=== PATIENT | male | born 1960 | race Caucasian/White ===

== ENCOUNTER 2017-09-22 10:07 | Inpatient (IN) | payer BC ==
[2017-09-22 11:20] LABS: Absolute Lymphocytes (CBC) 0.9 K/uL (0.7-4.9); Absolute Monocytes 0.6 K/uL (0.1-1.3); Basophils % 0.3 % (0-1.3); Eosinophils % 0.8 % (0-4.4); Hematocrit 28.3 % (39.6-49.0); Lymphocytes % 9.4 % (15.3-44.8); MCH 28.8 pg (27.0-35.0); MCV 88.1 fL (80-100); MPV 7.4 fL (7.6-11.3); Monocytes % 6.7 % (3.3-12.3); RBC Red Blood Cell Count 3.21 M/uL (4.33-5.43)
[2017-09-22 11:30] LABS: Protime INR 1.36
[2017-09-22 12:07] LABS: Albumin 3.5 g/dL (3.2-5.5); Bilirubin Direct 0.2 mg/dL (0-0.2); Bilirubin Total 0.6 mg/dL (0.3-1.2); Potassium 3.7 mEq/L (3.6-5.0); Protein, Total 6.5 g/dL (6.0-8.3)
[2017-09-22 12:41] LABS: Magnesium 0.6 mg/dL (1.8-2.5)
--- NOTE | 2017-09-22 12:43 | RAD REPORT ---
EXAM DESCRIPTION: VAS - Extrem Venous W Compress Brendon - 09/22/2017 11:33 am CLINICAL HISTORY: Bilateral leg edema and swelling. COMPARISON: None. TECHNIQUE: Real-time sonographic interrogation of the left and right lower extremity deep venous sys tems was performed. FINDINGS: Normal compressibility, flow augmentation, phasic flow and spontaneous flow is identified in both the left and right lower extremity deep venous systems. IMPRESSION: No sonographic evidence of left or right lower extremity deep venous thrombosis.
--- NOTE | 2017-09-22 12:46 | EDPHYS ---
Physician Documentation [facility] Name: Dilip Delgado Age: 57 yrs Sex: Male : 1960 Arrival Date: 09/22/2017 Time: 10:10 Bed 19 Private MD: Ariel Teran T ED Physician Shabbir Weiss HPI: 09/22 11:08 This 57 yrs old Male presents to ER via Wheelchair with complaints of rn Shortness Of Breath. 11:08 The patient has shortness of breath at rest, with light activity. Onset: The rn symptoms/episode began/occurred 3 week(s) ago. Duration: The symptoms are intermittent. Associated signs and symptoms: Pertinent positives: non-productive cough, Pertinent negatives: chest pain, fever, hemoptysis, loss of consciousness. Severity of symptoms: At their worst the symptoms were moderate in the emergency department the symptoms are unchanged. The patient has not experienced similar symptoms in the past. The patient has been recently seen by a physician:. Reports non-productive cough for 2-3 weeks, recently seen and put on zithromax, almost complete and not better, feels worse, no hemoptysis, has had multiple dopplers of LLE for swelling and to rule out DVT. No fever/chills. Dyspnea with exertion. . Historical: - Allergies: 10:23 No Known Allergies; hb - Home Meds: 10:23 Nexium Oral [Active]; allopurinol 100 mg Oral tab [Active]; hb - PMHx: 10:23 GERD; Gout; hb - PSHx: 10:23 Achilles tendon repair - RIGHT; hb - Immunization history:: Adult Immunizations up to date. - Social history:: Smoking status: Patient uses tobacco products, smokes one pack cigarettes per day. - Family history:: not pertinent. - Hospitalizations: : No recent hospitalization is reported. ROS: 11:08 Constitutional: Negative for fever, chills, and weight loss, Eyes: Negative for injury, rn pain, redness, and discharge, Neck: Negative for injury, pain, and swelling, Cardiovascular: Negative for chest pain, palpitations Respiratory: Negative for wheezing, and pleuritic chest pain, Abdomen/GI: Negative for abdominal pain, nausea, vomiting, diarrhea, and constipation, Back: Negative for injury and pain, MS/Extremity: Negative for injury and deformity, Skin: Negative for injury, rash, and discoloration, Neuro: Negative for headache, numbness, tingling, and seizure. Exam: 11:08 Constitutional: This is a well developed, well nourished patient who is awake, alert, rn mild tachypnea Head/Face: Normocephalic, atraumatic. Eyes: Pupils equal round and reactive to light, extra-ocular motions intact. Lids and lashes normal. Conjunctiva and sclera are non-icteric and not injected. Cornea within normal limits. Periorbital areas with no swelling, redness, or edema. Neck: Trachea midline, no thyromegaly or masses palpated, and no cervical lymphadenopathy. Supple, full range of motion without nuchal rigidity, or vertebral point tenderness. No Meningismus. Cardiovascular: Regular rate and rhythm with a normal S1 and S2. No gallops, murmurs, or rubs. Normal PMI, no JVD. No pulse deficits. Respiratory: + mild tachypnea, diminished breath sounds at bases, faint upper vigil wheezing Abdomen/GI: Soft, non-tender, with normal bowel sounds. No distension or tympany. No guarding or rebound. No evidence of tenderness throughout. MS/ Extremity: Pulses equal, no cyanosis. Neurovascular intact. Full, normal range of motion. 3+ pitting edema bilateral lower ext with LLE > circ than RLE Neuro: Awake and alert, GCS 15, oriented to person, place, time, and situation. Cranial nerves II-XII grossly intact. Motor strength 5/5 in all extremities. Sensory grossly intact. Vital Signs: 10:17 BP 157 / 95; Pulse 102; Resp 20; Temp 98.5; Pulse Ox 96% on R/A; hb 10:30 Pulse Ox 89% on R/A; tw2 11:08 BP 158 / 99; Pulse 91; Resp 28; Pulse Ox 97% on 2 lpm NC; tw2 12:09 BP 180 / 89; Pulse 90; Resp 22; Pulse Ox 94% on 2 lpm NC; tw2 13:10 BP 181 / 110; Pulse 94; Resp 19; Pulse Ox 95% on 2 lpm NC; tw2 13:51 BP 143 / 99; Pulse 83; Resp 20; Pulse Ox 95% on 2 lpm NC; tw2 15:29 BP 162 / 95; Pulse 85; Resp 17; Pulse Ox 96% on 2 lpm NC; tw2 10:30 pt winded while getting into gown, placed on o2 via nc at 2L will continue to monitor tw2 Procedures: 12:48 Ultrasound: Type: Bedside ECHo shows large and hypertrophic LV, no effusion, plethoric rn IVC. . MDM: 10:36 Patient medically screened. rn 12:43 Differential diagnosis: CHF exacerbation, Myocardial Infarction Pneumothorax pulmonary rn edema. Data reviewed: vital signs, nurses notes, lab test result(s), EKG, radiologic studies, plain films, and as a result, I will admit patient. Counseling: I had a detailed discussion with the patient and/or guardian regarding: the historical points, exam findings, and any diagnostic results supporting the discharge/admit diagnosis, lab results, radiology results, the need for further work-up and treatment in the hospital. Response to treatment: the patient's symptoms have mildly improved after treatment, and as a result, I will admit patient. Admission orders: after a detailed discussion of the patient's condition and case, the admit orders are written by me. 09/22 10:47 Order name: Hepatic Function; Complete Time: 12:42 09/22 10:47 Order name: Blood Culture Adult (2) rn 09/22 10:47 Order name: BMP; Complete Time: 12:42 09/22 10:47 Order name: BNP; Complete Time: 11:56 09/22 10:47 Order name: CBC with Diff; Complete Time: 11:56 09/22 10:47 Order name: Magnesium; Complete Time: 12:42 09/22 10:47 Order name: XRAY Chest Pa And Lat (2 Views); Complete Time: 13:03 09/22 10:47 Order name: PT-INR; Complete Time: 11:56 09/22 10:47 Order name: Ptt, Activated; Complete Time: 11:56 09/22 10:47 Order name: Troponin (emerg Dept Use Only); Complete Time: 11:56 09/22 10:47 Order name: Extrem Venous W Compression Brendon US; Complete Time: 12:47 09/22 10:47 Order name: Procalcitonin; Complete Time: 12:40 09/22 10:47 Order name: EKG; Complete Time: 10:48 09/22 10:47 Order name: Cardiac monitoring; Complete Time: 11:07 rn 09/22 10:47 Order name: EKG - Nurse/Tech; Complete Time: 12:39 rn 09/22 10:47 Order name: IV Saline Lock; Complete Time: 11:07 rn 09/22 10:47 Order name: Labs collected and sent; Complete Time: 11:07 rn 09/22 10:47 Order name: O2 Per Protocol; Complete Time: 10:50 rn 09/22 10:47 Order name: O2 Sat Monitoring; Complete Time: 10:50 rn Administered Medications: 12:50 Drug: Magnesium Sulfate 2 grams Route: IVPB; Infused Over: 2 hrs; Site: right tw2 antecubital; 14:50 Follow up: Response: No adverse reaction; IV Status: Completed infusion tw2 13:05 Drug: Calcium Gluconate 1 grams Route: IVPB; Infused Over: 60 mins; Site: right tw2 antecubital; 14:10 Follow up: Response: No adverse reaction; IV Status: Completed infusion tw2 13:48 Drug: Lopressor 5 mg Route: IVP; Site: right antecubital; tw2 15:28 Follow up: Response: No adverse reaction tw2 13:50 Drug: fentaNYL (PF) 50 mcg Route: IVP; Site: right antecubital; tw2 14:15 Follow up: Response: No adverse reaction; Pain is decreased tw2 13:52 Drug: Albuterol 2.5 mg Route: Inhalation; tw2 13:52 Drug: Lasix 40 mg Route: IVP; Site: right antecubital; tw2 15:29 Follow up: Response: No adverse reaction tw2 Disposition: 09/22/17 12:45 Hospitalization ordered by Bright Joyce for Inpatient Admission. Preliminary diagnosis are Dyspnea, unspecified, Edema, unspecified, Unspecified combined systolic (congestive) and diastolic (congestive) heart failure, Hypomagnesemia, Hypocalcemia. - Bed requested for Telemetry/MedSurg (Inpatient). - Status is Inpatient Admission. tw2 - Condition is Stable. - Problem is an ongoing problem. - Symptoms have improved. UTI on Admission? No Signatures: Dispatcher [employer] EDMS Kim Fraizer Roman, MD MD rn Roszak, Josh, PA PA [id number] Pavithra Cisse RN RN hb Wise, Tara, RN RN tw2 Corrections: (The following items were deleted from the chart) 15:16 12:45 Hospitalization Ordered by Bright Joyce DO for Inpatient Admission. Preliminary bd diagnosis is Dyspnea, unspecified; Edema, unspecified; Unspecified combined systolic (congestive) and diastolic (congestive) heart failure; Hypomagnesemia; Hypocalcemia. Bed requested for Telemetry/MedSurg (Inpatient). Status is Inpatient Admission. Condition is Stable. Problem is an ongoing problem. Symptoms have improved. UTI on Admission? No. rn 16:17 15:16 09/22/2017 12:45 Hospitalization Ordered by Bright Joyce DO for Inpatient tw2 Admission. Preliminary diagnosis is Dyspnea, unspecified; Edema, unspecified; Unspecified combined systolic (congestive) and diastolic (congestive) heart failure; Hypomagnesemia; Hypocalcemia. Bed requested for Telemetry/MedSurg (Inpatient). Status is Inpatient Admission. Condition is Stable. Problem is an ongoing problem. Symptoms have improved. UTI on Admission? No. bd
--- NOTE | 2017-09-22 12:46 | ER ---
Nurse's Notes [facility] Name: Dilip Delgado Age: 57 yrs Sex: Male : 1960 Arrival Date: 09/22/2017 Time: 10:10 Bed 19 Private MD: Ariel Teran T Diagnosis: Dyspnea, unspecified;Edema, unspecified;Unspecified combined systolic (congestive) and diastolic (congestive) heart failure;Hypomagnesemia;Hypocalcemia Presentation: 09/22 10:19 Presenting complaint: Patient states: SOB and productive cough with yellow sputum x 2 hb weeks, worse over last 2 days. On Zithromax Day 4 for bronchitis. Transition of care: patient was not received from another setting of care. Onset of symptoms is unknown. Initial Sepsis Screen: Does the patient meet any 2 criteria? No. Patient's initial sepsis screen is negative. Does the patient have a suspected source of infection? No. Patient's initial sepsis screen is negative. Care prior to arrival: None. 10:19 Method Of Arrival: Wheelchair hb 10:19 Acuity: CRISTIANA 3 hb Triage Assessment: 10:24 Respiratory: Reports shortness of breath at rest cough that is productive, Onset: The tw2 symptoms/episode began/occurred 2 days worse now, the patient has mild shortness of breath. Historical: - Allergies: 10:23 No Known Allergies; hb - Home Meds: 10:23 Nexium Oral [Active]; allopurinol 100 mg Oral tab [Active]; hb - PMHx: 10:23 GERD; Gout; hb - PSHx: 10:23 Achilles tendon repair - RIGHT; hb - Immunization history:: Adult Immunizations up to date. - Social history:: Smoking status: Patient uses tobacco products, smokes one pack cigarettes per day. - Family history:: not pertinent. - Hospitalizations: : No recent hospitalization is reported. Screenin:23 Abuse screen: Denies threats or abuse. Nutritional screening: No deficits noted. tw2 Tuberculosis screening: No symptoms or risk factors identified. Fall Risk None identified. Assessment: 10:31 General: Appears in no apparent distress. well groomed, Behavior is calm, cooperative, tw2 appropriate for age. Pain: Denies pain. Neuro: Level of Consciousness is awake, alert, obeys commands, Oriented to person, place, time, situation. Cardiovascular: Denies chest pain, Heart tones S1 S2 Capillary refill < 3 seconds Edema is 2+ to left midcalf, left ankle, left foot, right midcalf, right ankle and right foot Rhythm is regular. Respiratory: Reports shortness of breath at rest on exertion cough that is productive, Airway is patent Respiratory effort is even, unlabored, Respiratory pattern is regular, symmetrical, Breath sounds are clear bilaterally. GI: No signs and/or symptoms were reported involving the gastrointestinal system. Abdomen is round Bowel sounds present X 4 quads. : No signs and/or symptoms were reported regarding the genitourinary system. EENT: No signs and/or symptoms were reported regarding the EENT system. Derm: No signs and/or symptoms reported regarding the dermatologic system. Musculoskeletal: Range of motion: intact in all extremities. 11:09 Reassessment: Patient appears in no apparent distress at this time. No changes from tw2 previously documented assessment. Patient and/or family updated on plan of care and expected duration. Pain level reassessed. Patient is alert, oriented x 3, equal unlabored respirations, skin warm/dry/pink. 12:08 Reassessment: Patient appears in no apparent distress at this time. No changes from tw2 previously documented assessment. Patient and/or family updated on plan of care and expected duration. Pain level reassessed. Patient is alert, oriented x 3, equal unlabored respirations, skin warm/dry/pink. Vital Signs: 10:17 BP 157 / 95; Pulse 102; Resp 20; Temp 98.5; Pulse Ox 96% on R/A; hb 10:30 Pulse Ox 89% on R/A; tw2 11:08 BP 158 / 99; Pulse 91; Resp 28; Pulse Ox 97% on 2 lpm NC; tw2 12:09 BP 180 / 89; Pulse 90; Resp 22; Pulse Ox 94% on 2 lpm NC; tw2 13:10 BP 181 / 110; Pulse 94; Resp 19; Pulse Ox 95% on 2 lpm NC; tw2 13:51 BP 143 / 99; Pulse 83; Resp 20; Pulse Ox 95% on 2 lpm NC; tw2 15:29 BP 162 / 95; Pulse 85; Resp 17; Pulse Ox 96% on 2 lpm NC; tw2 10:30 pt winded while getting into gown, placed on o2 via nc at 2L will continue to monitor tw2 ED Course: 10:10 Patient arrived in ED. mr 10:10 Ariel Teran MD is Private Physician. mr 10:21 Triage completed. hb 10:23 Galina Benjamin RN is Primary Nurse. tw2 10:23 Arm band placed on left wrist. hb 10:24 Bed in low position. Call light in reach. laboratory monitor on. Pulse ox on. NIBP on. tw2 10:36 Shabbir Weiss MD is Attending Physician. rn 10:50 Inserted saline lock: 20 gauge in right antecubital area, using aseptic technique. tw2 Blood collected. 11:34 Extrem Venous W Compression Brendon US In Process Unspecified. EDMS 11:52 X-ray completed. Portable x-ray completed in exam room. Patient tolerated procedure jb2 well. 11:52 XRAY Chest Pa And Lat (2 Views) In Process Unspecified. EDMS 12:44 Bright Joyce DO is Hospitalizing Provider. rn 15:31 No provider procedures requiring assistance completed. tw2 15:33 Patient admitted, IV remains in place. tw2 Administered Medications: 12:50 Drug: Magnesium Sulfate 2 grams Route: IVPB; Infused Over: 2 hrs; Site: right tw2 antecubital; 14:50 Follow up: Response: No adverse reaction; IV Status: Completed infusion tw2 13:05 Drug: Calcium Gluconate 1 grams Route: IVPB; Infused Over: 60 mins; Site: right tw2 antecubital; 14:10 Follow up: Response: No adverse reaction; IV Status: Completed infusion tw2 13:48 Drug: Lopressor 5 mg Route: IVP; Site: right antecubital; tw2 15:28 Follow up: Response: No adverse reaction tw2 13:50 Drug: fentaNYL (PF) 50 mcg Route: IVP; Site: right antecubital; tw2 14:15 Follow up: Response: No adverse reaction; Pain is decreased tw2 13:52 Drug: Albuterol 2.5 mg Route: Inhalation; tw2 13:52 Drug: Lasix 40 mg Route: IVP; Site: right antecubital; tw2 15:29 Follow up: Response: No adverse reaction tw2 Outcome: 12:45 Decision to Hospitalize by Provider. rn 15:35 Admitted to Med/surg accompanied by nurse, via wheelchair, Report called to PATITO Patterson tw2 15:35 Condition: stable 15:35 Instructed on the need for admit. 16:17 Patient left the ED. tw2 Signatures: Dispatcher [employer] TRUPTI Vani Reed, Crow jb2 Shabbir Weiss MD MD rn Baxter, Heather, RN RN hb Wise, Tara, RN RN tw2 Corrections: (The following items were deleted from the chart) 11:09 10:31 Cardiovascular: Denies chest pain, Heart tones S1 S2 Capillary refill < 3 seconds tw2 Rhythm is regular tw2
[2017-09-22] MEDS ORDERED: Magnesium Sulfate 2gm IVPB 2 G/50 ML BAG IV ONE (12:47)
--- NOTE | 2017-09-22 12:55 | RAD REPORT ---
EXAM DESCRIPTION: RAD - Chest Pa And Lat (2 Views) - 09/22/2017 11:55 am CLINICAL HISTORY: Cough x2 weeks COMPARISON: 07/21/2014 FINDINGS: The lungs are clear. The heart is upper limit of normal in size. No displaced fractures. IMPRESSION: No acute or concerning finding suspected.
[2017-09-22] MEDS ORDERED: CALCIUM GLUCONATE 1gm/100 ML NS (4.65 mEq/100mL) IV ONE ×2 (13:00)
--- NOTE | 2017-09-22 13:37 | P.HP ---
Certification for Inpatient Patient admitted to: Inpatient With expected LOS: >2 Midnights Patient will require the following post-hospital care: None Practitioner: I am a practitioner with admitting privileges, knowledge of patient current condition, hospital course, and medical plan of care. Services: Services provided to patient in accordance with Admission requirements found in Title 42 Section 412.3 of the Code of Federal Regulations <Abbe Riddle - Last Filed: 09/22/17 13:25> Patient admitted to: Inpatient With expected LOS: >2 Midnights Patient will require the following post-hospital care: None Practitioner: I am a practitioner with admitting privileges, knowledge of patient current condition, hospital course, and medical plan of care. Services: Services provided to patient in accordance with Admission requirements found in Title 42 Section 412.3 of the Code of Federal Regulations <Bright Joyce - Last Filed: 09/22/17 18:13> Patient History Date of Service: 09/22/17 Reason for admission: Shortness of breath History of Present Illness: This is a 57 y/o M that present to the ED with a one week history of shortness of breath with dyspnea upon exertion that has increasingly became worse. Noticed an increase in bilateral extremity edema as well. Denies recent travel, illness, fever, or chest pain. Denies ever having these symptoms before. Occasional alcohol and 1ppd smoker but denies drug abuse. Longstanding history of elevated BP but has never been treated for HTN. Home medications list reviewed: Yes - Past Medical/Surgical History Has patient received pneumonia vaccine in the past: No Diabetic: No -: GERD -: Gout -: HTN - Social History Smoking Status: Current every day smoker Smoking therapy provided: Yes Patient receptive to therapy: Yes Alcohol use: Yes CD- Drugs: No Place of Residence: Home <Liz Riddleshua - Last Filed: 09/22/17 13:25> Date of Service: 09/22/17 Home medications list reviewed: Yes - Past Medical/Surgical History Diabetic: No Past Surgical History: Reviewed- Non-Contributory Psychosocial/ Personal History: Patient lives at home. - Family History Father History Unknown: Yes -: Heart disease Mother History Unknown: Yes -: Cancer Notes: Thyroid and colon CA - Social History Smoking Status: Current every day smoker Smoking therapy provided: Yes Patient receptive to therapy: Yes Alcohol use: Yes CD- Drugs: No Place of Residence: Home <Bright Joyce - Last Filed: 09/22/17 18:13> Allergies No Known Allergies Allergy (Verified 09/22/17 16:19) Home Medications: Allopurinol 300 mg PO DAILY WITH BREAKFAST 09/22/17 Colchicine [Colcrys] 0.6 mg PO DAILY 09/22/17 Esomeprazole Magnesium 40 mg PO DAILY WITH BREAKFAST 09/22/17 Review of Systems General: Unremarkable Eyes: Unremarkable ENT: Unremarkable Respiratory: Cough, Shortness of Breath, SOB with Excertion, As per HPI Cardiovascular: Orthopnea, Light Headedness Gastrointestinal: Unremarkable Genitourinary: Unremarkable Musculoskeletal: Leg Pain Integumentary: Unremarkable Neurological: Unremarkable Lymphatics: Unremarkable <Liz Riddleshua - Last Filed: 09/22/17 13:25> General: Unremarkable Eyes: Unremarkable ENT: Unremarkable Respiratory: Cough, Shortness of Breath, SOB with Excertion, As per HPI Cardiovascular: Orthopnea, Light Headedness, As per HPI Gastrointestinal: Unremarkable Genitourinary: Unremarkable Musculoskeletal: Leg Pain Integumentary: Unremarkable Neurological: Unremarkable Lymphatics: Unremarkable <Bright Joyce - Last Filed: 09/22/17 18:13> Physical Examination - Vital Signs Temperature: 98.5 F Blood Pressure: 180/89 Pulse: 90 Respirations: 22 (Tachypneic ) Pulse Ox (%): 95 - Physical Exam General: Alert, In no apparent distress, Oriented x3, Cooperative HEENT: Atraumatic, Normocephalic, PERRLA, Mucous membr. moist/pink, EOMI Neck: Supple, 2+ carotid pulse no bruit, JVD not distended, No Thyromegaly Respiratory: Rhonchi/gurgles Cardiovascular: Normal pulses, Regular rate/rhythm, Normal S1 S2, No gallops, No rubs, No murmurs, Edema Capillary refill: <2 Seconds Gastrointestinal: Normal bowel sounds, Soft and benign, Non-distended, No ascites, No tenderness, No masses, No rebound, No guarding, Other (umbilical hernia present. Non tender ) Musculoskeletal: No clubbing, No warmth, Erythema (mild erythema noted to left lower leg ) Integumentary: No rashes Neurological: Normal gait, Normal speech, Normal strength at 5/5 x4 extr, Normal tone, Sensation intact, Cranial nerves 3-12 intact, Normal affect, Abnormal reflexes (Hyper reflexic ) Lymphatics: No axilla or inguinal lymphadenopathy - Studies Laboratory Data (last 24 hrs) 09/22/17 10:55: PT 16.1 H, INR 1.36, APTT 25.2 09/22/17 10:55: WBC 9.7, Hgb 9.2 L, Hct 28.3 L, Plt Count 324 09/22/17 10:55: B-Natriuretic Peptide 1328 H 09/22/17 10:55: Sodium 137, Potassium 3.7, BUN 13, Creatinine 1.01, Glucose 116 , Magnesium 0.6 L*, Total Bilirubin 0.6, AST 35, ALT 24, Alkaline Phosphatase 138 H <Abbe Riddle - Last Filed: 09/22/17 13:25> - Studies Laboratory Data (last 24 hrs) 09/22/17 10:55: PT 16.1 H, INR 1.36, APTT 25.2 09/22/17 10:55: WBC 9.7, Hgb 9.2 L, Hct 28.3 L, Plt Count 324 09/22/17 10:55: B-Natriuretic Peptide 1328 H 09/22/17 10:55: Sodium 137, Potassium 3.7, BUN 13, Creatinine 1.01, Glucose 116 , Magnesium 0.6 L*, Total Bilirubin 0.6, AST 35, ALT 24, Alkaline Phosphatase 138 H <Bright Joyce - Last Filed: 09/22/17 18:13> Assessment and Plan - Problems (Diagnosis) (1) Hypertension Current Visit: Yes Status: Chronic Plan: To start patient on blood pressure medications and monitor blood pressure Qualifiers: Hypertension type: essential hypertension Qualified Code(s): I10 - Essential (primary) hypertension (2) Congestive heart failure Current Visit: Yes Status: Acute Plan: Cardiology consult with echocardiogram. To control blood pressure and utilize diuretics Qualifiers: Heart failure type: unspecified (3) Hypomagnesemia Current Visit: Yes Status: Acute Plan: To continue to monitor magnesium levels along with replacing magnesium (4) Hypocalcemia Current Visit: Yes Status: Acute Plan: To continue to monitor calcium levels. Recheck after magnesium normalizes. (5) Elevated troponin Current Visit: Yes Status: Acute Plan: To trend levels to insure it does not elevate. Cardiology consult. Could be secondary to congestive heart failure or cardiomyopathy or from true myocardial injury (6) Anemia Current Visit: Yes Status: Suspected Qualifiers: Anemia type: iron deficiency Iron deficiency anemia type: unspecified iron deficiency Qualified Code(s): D50.9 - Iron deficiency anemia, unspecified Discharge Plan: Home Plan to discharge in: Greater than 2 days - Advance Directives Does patient have a Living Will: No Does patient have a Durable POA for Healthcare: No - Code Status/Comfort Care Code Status Assessed: Yes Code Status: Full Code <Abbe Riddle - Last Filed: 09/22/17 13:25> - Problems (Diagnosis) (1) Gout Current Visit: Yes Status: Chronic Plan: Will continue his medication-Allopurinol. Qualifiers: Gout site: unspecified site Gout etiology: unspecified cause Chronicity: chronic Presence of tophus: without tophus Qualified Code(s): M1A.9XX0 - Chronic gout, unspecified, without tophus (tophi) (2) GERD (gastroesophageal reflux disease) Current Visit: Yes Status: Chronic Plan: Will continue with PPI. Qualifiers: Esophagitis presence: esophagitis presence not specified Qualified Code(s) : K21.9 - Gastro-esophageal reflux disease without esophagitis (3) Congestive heart failure Current Visit: Yes Status: Suspected Plan: Will continue with a 1500 cc per day fluid restriction. Will check ECHO. Cardiology consulted. Will continue with Lasix. Qualifiers: Heart failure type: systolic Heart failure chronicity: acute on chronic Qualified Code(s): I50.23 - Acute on chronic systolic (congestive) heart failure (4) Elevated troponin Current Visit: Yes Status: Acute Plan: Will monitor closely. Patient with Lovenox for DVT prophylaxis. Cardiology consulted. Await recommendation. Will keep NPO after midnight in the event that Cardiology desires evaluation. (5) Hypocalcemia Current Visit: Yes Status: Acute Plan: Will continue to monitor. Will replace. Will check PTH in the am. (6) Hypomagnesemia Current Visit: Yes Status: Acute (7) Hypertension Current Visit: Yes Status: Chronic Plan: Will start medication. Will monitor and adjust. Qualifiers: Hypertension type: essential hypertension Qualified Code(s): I10 - Essential (primary) hypertension (8) Anemia Current Visit: Yes Status: Chronic Plan: Suspect Iron deficiency. Will check iron and B12 studies in the am. Will monitor H/H. Qualifiers: Anemia type: iron deficiency Iron deficiency anemia type: unspecified iron deficiency Qualified Code(s): D50.9 - Iron deficiency anemia, unspecified Discharge Plan: Home Plan to discharge in: Greater than 2 days - Code Status/Comfort Care Code Status Assessed: Yes Code Status: Full Code Time Spent Managing Pts Care (In Minutes): 55 <Bright Joyce - Last Filed: 09/22/17 18:13>
[2017-09-22] MEDS ORDERED: FUROSEMIDE 40 MG/4 ML VIAL ONE (13:40)
[2017-09-22] MEDS ORDERED: ALBUTEROL 2.5 MG/3 ML NEB SOL ONE (13:40)
[2017-09-22] MEDS ORDERED: FENTANYL CITR 100 MCG/2 ML ONE (13:40)
[2017-09-22] MEDS ORDERED: METOPROLOL TARTRATE 5 MG/5 ML INJ IV ONE (13:41)
--- NOTE | 2017-09-22 14:40 | EKG ---
Test Date: 2017-09-22 Test Time: 11:40:15 Risk Management Analyst: KAYCEE MEASUREMENT RESULTS: Intervals: Rate: 90 DC: 160 QRSD: 82 QT: 374 QTc: 457 [place]: P: DC: 160 QRS: 78 T: 81 INTERPRETIVE STATEMENTS: Normal sinus rhythm Nonspecific ST abnormality Abnormal ECG Compared to ECG 09/28/2007 11:50:39 ST (T wave) deviation now present Electronically Signed On 09-22-17 14:39:12 CDT by Angel Villalobos
[2017-09-22] MEDS ORDERED: ONDANSETRON 4 MG/2 ML VIAL IV PRN (16:31)
[2017-09-22] MEDS ORDERED: ACETAMINOPHEN 500 MG TAB PO PRN (16:31)
[2017-09-22] MEDS ORDERED: ALBUTEROL 2.5 MG/3 ML NEB SOL NEB PRN (16:31)
[2017-09-22] MEDS ORDERED: IPRATROPIUM BROM 0.5MG/2.5ML NEB PRN (16:31)
[2017-09-22] MEDS: FUROSEMIDE 20 MG/ 2ML VIAL IV SCH (17:00)
[2017-09-22] MEDS: ENOXAPARIN 40 MG/0.4 ML SQ SCH (17:00)
[2017-09-22] MEDS: Morphine 2 MG/2 ML SYR IV PRN ×2 (17:01→21:10)
[2017-09-22] MEDS: METOPROLOL TAR 25 MG TAB PO SCH (17:10)
[2017-09-22 17:53] LABS: Thyroid Stimulating Hormone 2.26 uIU/mL (0.34-5.60)
[2017-09-22] MEDS ORDERED: CYCLOBENZAPRINE 10 MG TAB PO ONE (20:52)
[2017-09-22] MEDS ORDERED: ZOLPIDEM TARTRATE 5 MG TABLET PO ONE (22:50)
[2017-09-22] MEDS ORDERED: MAGNESIUM 50% 3 GM in NA CHLORIDE 0.9% 100 ML IV ONE (23:43)
[2017-09-23] MEDS ORDERED: Magnesium Sulfate 2gm IVPB 2 G/50 ML BAG IV ONE ×2 (00:56→01:00)
[2017-09-23] MEDS ORDERED: MAGNESIUM SULFATE 1 gm IVPB 1 GM/100 ML BAG IV ONE ×3 (00:57→07:00)
[2017-09-23] MEDS ORDERED: NA CHLORIDE 0.9% 250 ML ONE (01:05)
[2017-09-23] MEDS ORDERED: LORazepam 2 MG/ML VIAL IV ONE (01:35)
[2017-09-23] MEDS ORDERED: METHYLPREDNISOLONE 125 MG INJ IV ONE (02:58)
[2017-09-23] MEDS ORDERED: Magnesium Sulfate 1gm IVPB 1 GM/50 ML BAG IV ONE (03:00)
[2017-09-23] MEDS: Morphine 2 MG/2 ML SYR IV PRN ×5 (03:03→22:30)
[2017-09-23 05:16] LABS: Absolute Lymphocytes (CBC) 0.6 K/uL (0.7-4.9); Absolute Monocytes 0.6 K/uL (0.1-1.3); Absolute Neutrophil 10.7 K/uL (1.8-8.0); Basophils % 0.2 % (0-1.3); Eosinophils % 0.8 % (0-4.4); Hematocrit 27.3 % (39.6-49.0); MCH 28.3 pg (27.0-35.0); MCV 88.1 fL (80-100); MPV 7.4 fL (7.6-11.3); Monocytes % 4.8 % (3.3-12.3)
[2017-09-23] MEDS: METOPROLOL TAR 25 MG TAB PO SCH ×2 (05:35→16:22)
[2017-09-23] MEDS: PANTOPRAZOLE 40MG TABLET PO SCH (05:36)
[2017-09-23 05:50] LABS: Platelet Estimate ADEQ; Urine White Blood Cell Casts OK
[2017-09-23 05:51] LABS: Blood Morphology Comment NOT SEEN (NOT SEEN)
[2017-09-23 06:00] LABS: C-Reactive Protein 50.3 mg/L (<10.0); Ferritin 10.6 ng/ml (23.9-336.2); Magnesium 1.8 mg/dL (1.8-2.5); Potassium 3.6 mEq/L (3.6-5.0)
[2017-09-23] MEDS: ASPIRIN 81 MG CHEWABLE TABLET PO SCH (10:06)
[2017-09-23] MEDS: LISINOPRIL 20 MG TAB PO SCH (10:06)
[2017-09-23] MEDS: FUROSEMIDE 20 MG/ 2ML VIAL IV SCH ×2 (10:06→16:22)
[2017-09-23] MEDS: ALLOPURINOL 300 MG TAB PO SCH (10:06)
--- NOTE | 2017-09-23 11:37 | RAD REPORT ---
EXAM DESCRIPTION: CTAbdomen Pelvis W Contrast - 09/23/2017 11:29 am CLINICAL HISTORY: Abdominal pain. History of CHF. COMPARISON: 11/18/2007 TECHNIQUE: Biphasic CT imaging of the abdomen and pelvis was performed with 100 ml non-ionic IV cont rast. All CT scans are performed using dose optimization technique as appropriate and may include automated exposure control or mA/KV adjustment according to patient size. FINDINGS: The lung bases are clear. The liver demonstrates no focal mass or intrahepatic biliary dilatation. Mild fatty liver suspected. The spleen, pancreas and right adrenal gland are normal. Mild thickening of the limbs of the left adr enal gland seen. No bowel obstruction, free air, free fluid or abscess. Moderate fat containing ventral hernia is pres ent. The appendix is normal. No evidence of significant lymphadenopathy. Mild aortic atherosclerosis . No suspicious bony findings. IMPRESSION: Mild fatty liver infiltration. Moderate fat containing ventral hernia.
[2017-09-23] MEDS: predniSONE 20 MG TAB PO SCH ×2 (12:44→21:18)
--- NOTE | 2017-09-23 12:52 | ECHO ---
HEIGHT: 6 ft 0 in WEIGHT: 215 lb 0 oz DATE OF STUDY: 09/23/[address]: Abbe Riddle 2-DIMENSIONAL: YES M.MODE: YES DOPPLER: YES COLOR FLOW: YES TDS: PORTABLE: DEFINITY: BUBBLE STUDY: DIAGNOSIS: NEW ONSET HEART FAILURE CARDIAC HISTORY: CATHERIZATION: NO SURGERY: NO PROSTHETIC VALVE: NO PACEMAKER: NO MEASUREMENTS (cm) DIASTOLIC (NORMALS) SYSTOLIC (NORMALS) IVSd 1.1 (0.6-1.2) LA Diam 4.8 (1.9-4.0) LVEF 45-49% LVIDd 6.6 (3.5-5.7) LVIDs 4.9 (2.0-3.5) %FS 26% LVPWd 1.3 (0.6-1.2) Ao Diam 2.9 (2.0-3.7) 2 DIMENSIONAL ASSESSMENT: RIGHT ATRIUM: DILATED LEFT ATRIUM: DILATED RIGHT VENTRICLE: NORMAL LEFT VENTRICLE: DILATED TRICUSPID VALVE: NORMAL MITRAL VALVE: NORMAL PULMONIC VALVE: NORMAL AORTIC VALVE: NORMAL PERICARDIAL EFFUSION: NONE AORTIC ROOT: NORMAL LEFT VENTRICULAR WALL MOTION: MILD GLOBAL HYPOKINESIS DOPPLER/COLOR FLOW: MILD TO MODERATE TRICUSPID REGURGITATION. SEVERE PULMONARY HYPERTENSION. ESTIMATED RIGHT VENTRICULAR SYSTOLIC PRESSURE 65 mmHg. ESTIMATED RIGHT ATRIAL PRESSURE 15 mmHg. COMMENTS: MILDLY DEPRESSED LEFT VENTRICULAR EJECTION FRACTION. DILATED LEFT AND RIGHT ATRIUM. MILD TO MODERATE TRICUSPID REGURGITATION. SEVERE PULMONARY HYPERTENSION. TECHNOLOGIST: SAYRA BOYLE
[2017-09-23] MEDS: ENOXAPARIN 40 MG/0.4 ML SQ SCH (16:22)
--- NOTE | 2017-09-23 18:22 | PN ---
Date of Progress Note: 09/23/2017 Subjective: The patient seen and examined, chart reviewed, and case discussed with RN. The patient complaining of significant pain in his left leg, asking for steroids. The patient states his breathi ng is better. Still has some lower extremity edema. Review of Systems: Negative except as above. Medications: Reviewed. Physical Examination: Vital Signs: Temperature 98.3, heart rate 77, blood pressure 152/85, respirations 20, O2 98% on room air. General: Awake, alert, oriented x3. Some mild distress, appears older than stated age. Ill-appeari ng male. CV: S1, S2. Regular rate and rhythm. Peripheral pulses present bilaterally. No murmurs. Respiratory: Clear to auscultation bilaterally. No wheezing. No stridor or use of accessory muscle s. Some diminished breath sounds at the bases with crackles heard. Gastrointestinal: Abdomen is soft, nontender, nondistended. Positive bowel sounds. No guarding or rigidity. Extremities: No clubbing, cyanosis, 2+ edema. Neurologic: Nonfocal. Musculoskeletal: Decreased range of motion. Left lower extremity tenderness to palpation. Laboratory Data: Sodium 132, potassium 3.6, chloride 97, CO2 24, BUN 15, creatinine 1.19, glucose 12 2, calcium 5.8, and magnesium 1.8. Troponin 0.06. CRP 50.3. BNP 1655. WBC 12, H and H 8.8, 27.3, platelets 313, and neutrophils 89.2%. Blood cultures, no growth to date. CT scan of the abdomen and pelvis shows mild fatty liver infiltration, moderate fat-containing ventral hernia. Assessment And Plan: 1.Acute congestive heart failure, unknown ejection fraction. We will continue diuretics. Follow up with Cardiology recommendations. 2.Hypomagnesemia. Replace and monitor. 3.Hypocalcemia. Replace and monitor. 4.Elevated troponin. Cardiology on board. May be secondary to congestive heart failure. Repeat le jared 0.06. 5.Hypomagnesemia. Replace and monitor. 6.Essential hypertension, stable. 7.Anemia, likely anemia of iron deficiency. 8.Left lower extremity pain. 9.Essential hypertension, stable. SA/MODL Voice ID: [id number] Report ID: [id number]
--- NOTE | 2017-09-23 22:58 | CON ---
Date of Consultation: 09/23/2017 Reason For Consultation: I saw the patient on 09/23/2017 for shortness of breath and possible conges tive heart failure. The patient is a 57-year-old white male with history of gout and gastroesophagea l reflux disease. He came in with left leg pain, shortness of breath, and cough. He had a negative renal Doppler, normal EKG and chest x-ray. His BNP, however, was about 1328. His troponin was 0.06. Echocardiogram showed an ejection fraction of 45% with mild global hypokinesis. He was anemic at 9 .2. Calcium was 6.0. His magnesium was 0.6. He denied chest pain, nausea, vomiting, or diaphoresis . Denied PND, orthopnea, pedal edema, palpitations, or syncope. Allergies: NONE. Review of Systems: Negative. Social History: Negative. Family History: Negative. Medications At Home: Include Nexium and allopurinol. Physical Examination: General: He was complaining of leg pain, but no acute distress. Vital Signs: Stable. Afebrile. HEENT: Negative. Neck: Supple. No bruit. Chest: Clear to auscultation and percussion. Cardiac: Revealed a regular rhythm and rate without any murmurs, gallops, or rubs. Abdomen: Benign. Extremities: Revealed no clubbing, cyanosis, or edema. Diagnostic Data: As stated earlier. Impression And Plan: 1.Shortness of breath and cough, and his echocardiogram was consistent with new-onset acute systolic congestive heart failure. We should continue his beta-blockers, MATHEW inhibitors, and Lasix. 2.Anemia of unknown etiology. 3.Hypocalcemia. 4.Hypomagnesemia. 5.Elevated troponin and BNP consistent with his congestive heart failure. I think we need to treat his congestive heart failure, stabilize, and figure out why his calcium and magnesium and hemoglobin are low. I ordered a PTH on him and a CT of his abdomen. We will do a stress Cardiolite eventually, but not now. MEGHAN/RHONDA Voice ID: [id number] Report ID: [id number]
[2017-09-24 05:52] LABS: Absolute Lymphocytes (CBC) 0.4 K/uL (0.7-4.9); Absolute Monocytes 0.5 K/uL (0.1-1.3); Absolute Neutrophil 10.2 K/uL (1.8-8.0); Basophils % 0.2 % (0-1.3); Hematocrit 27.1 % (39.6-49.0); Lymphocytes % 3.3 % (15.3-44.8); MCH 27.8 pg (27.0-35.0); MCV 88.8 fL (80-100); MPV 7.9 fL (7.6-11.3); Monocytes % 4.6 % (3.3-12.3); RBC Red Blood Cell Count 3.06 M/uL (4.33-5.43)
[2017-09-24 06:11] LABS: Albumin 2.8 g/dL (3.2-5.5); Bilirubin Total 0.5 mg/dL (0.3-1.2); Magnesium 1.7 mg/dL (1.8-2.5); Potassium 3.9 mEq/L (3.6-5.0); Protein, Total 5.4 g/dL (6.0-8.3)
[2017-09-24] MEDS: METOPROLOL TAR 25 MG TAB PO SCH ×2 (06:29→17:24)
[2017-09-24] MEDS: PANTOPRAZOLE 40MG TABLET PO SCH (06:30)
[2017-09-24] MEDS ORDERED: MAGNESIUM SULFATE 1 gm IVPB 1 GM/100 ML BAG IV ONE (06:34)
[2017-09-24] MEDS: Morphine 2 MG/2 ML SYR IV PRN ×3 (07:45→21:00)
[2017-09-24] MEDS: ALLOPURINOL 300 MG TAB PO SCH (08:46)
[2017-09-24] MEDS: ASPIRIN 81 MG CHEWABLE TABLET PO SCH (08:46)
[2017-09-24] MEDS: LISINOPRIL 20 MG TAB PO SCH (08:46)
[2017-09-24] MEDS: predniSONE 20 MG TAB PO SCH ×2 (08:46→20:28)
[2017-09-24] MEDS: FUROSEMIDE 20 MG/ 2ML VIAL IV SCH ×2 (08:47→16:48)
[2017-09-24] MEDS ORDERED: CALCIUM GLUC 10% INJ 4.65 MEQ in NA CHLORIDE 0.9% 100 ML IV ONE (12:28)
--- NOTE | 2017-09-24 13:32 | RAD REPORT ---
EXAM DESCRIPTION: Tulio Franco And Edilia (2 Views)09/24/2017 1:24 pm CLINICAL HISTORY: Shortness of breath COMPARISON: September 22, 2017 FINDINGS: The lungs appear clear of acute infiltrate. The heart is mildly enlarged IMPRESSION: No acute abnormalities displayed
[2017-09-24] MEDS: ENOXAPARIN 40 MG/0.4 ML SQ SCH (16:48)
--- NOTE | 2017-09-24 17:04 | PN ---
Date of Progress Note: 09/24/2017 Subjective: The patient is seen and examined. Chart reviewed and case discussed with RN and Dr. Doe. The patient states his shortness of breath has improved significantly. Pain in his leg has re solved. Lower extremity edema still present. Review of Systems: Negative except as above. Medications: Reviewed. Physical Examination: Vital Signs: Temperature 98.6, heart rate 73, blood pressure 117/58, respirations 20, O2 94% on 2 L via nasal cannula. General: Awake, alert, oriented, in some mild distress, appears older than stated age. Slightly ill -appearing male. CV: S1, S2. No murmurs. Peripheral pulses present. Respiratory: Diminished breath sounds at the bases. Some crackles heard, improved. Gastrointestinal: Abdomen is soft, nontender, nondistended. Positive bowel sounds. Extremities: No clubbing, cyanosis. 2+ edema. Neurologic: Nonfocal. Laboratory Data: Sodium 133, potassium 3.9, chloride 96, CO2 28, BUN 27, creatinine 1.4, glucose 180 , calcium 6, magnesium 1.7, albumin 2.8, PTH 403. WBC 11.1, H and H 8.5 and 27.1, platelets 351, sarina trophils 91%. Blood cultures, no growth to date. Echocardiogram shows EF 45% to 49%, mild global hy pokinesis, mildly depressed left ventricular ejection fraction, dilated left and right atrium, mild-t o-moderate tricuspid regurg, severe pulmonary hypertension. Assessment And Plan: A 57-year-old male with: 1.Acute systolic congestive heart failure. We will continue diuretics. The patient does have some mild global hypokinesis. We will need a Lexiscan as an outpatient. 2.Hypomagnesemia, replace and monitor. 3.Hypocalcemia. We will replace and monitor. 4.Elevated troponin secondary to congestive heart failure. No intervention planned at this time. 5.Essential hypertension, stable. 6.Anemia of iron deficiency anemia. Monitor H and H. stable. 7.Left lower extremity pain, improved. We will continue steroid taper. 8.Hyponatremia, we will replace. 9.Acute kidney injury. Creatinine is elevated. We will adjust diuretic dose. SA/MODL Voice ID: [id number] Report ID: [id number]
[2017-09-24 21:01] VITALS: O2SAT 98
[2017-09-25] MEDS: Morphine 2 MG/2 ML SYR IV PRN ×2 (04:11→09:27)
[2017-09-25 05:17] VITALS: BMI 29.0
[2017-09-25] MEDS: METOPROLOL TAR 25 MG TAB PO SCH (05:23)
[2017-09-25] MEDS: PANTOPRAZOLE 40MG TABLET PO SCH (05:32)
[2017-09-25 06:26] LABS: Absolute Lymphocytes (CBC) 0.3 K/uL (0.7-4.9); Absolute Monocytes 0.4 K/uL (0.1-1.3); Absolute Neutrophil 8.6 K/uL (1.8-8.0); Basophils % 0.1 % (0-1.3); Hematocrit 25.5 % (39.6-49.0); Lymphocytes % 3.2 % (15.3-44.8); MCH 29.1 pg (27.0-35.0); MCV 87.9 fL (80-100); MPV 7.5 fL (7.6-11.3); Monocytes % 4.7 % (3.3-12.3)
[2017-09-25 07:21] LABS: Albumin 2.8 g/dL (3.2-5.5); Bilirubin Total 0.4 mg/dL (0.3-1.2); Magnesium 1.8 mg/dL (1.8-2.5); Potassium 4.2 mEq/L (3.6-5.0); Protein, Total 5.5 g/dL (6.0-8.3)
--- NOTE | 2017-09-25 07:41 | EKG ---
Test Date: 2017-09-24 Test Time: 22:42:51 [facility]: MICHAEL MEASUREMENT RESULTS: Intervals: Rate: 69 ID: [id number] QRSD: 84 QT: 410 QTc: 439 [place]: P: ID: [id number] QRS: 74 T: 79 INTERPRETIVE STATEMENTS: Normal sinus rhythm Nonspecific ST abnormality Abnormal ECG Compared to ECG 09/22/2017 11:40:15 No significant changes Electronically Signed On 09-25-17 07:40:22 CDT by Angel Villalobos
[2017-09-25] MEDS ORDERED: MAGNESIUM SULFATE 1 gm IVPB 1 GM/100 ML BAG IV ONE (09:00)
[2017-09-25] MEDS ORDERED: CALCITROL 0.25 MCG CAP PO SCH (09:00)
[2017-09-25 09:01] VITALS: BP 125/56; TEMP 97.9
[2017-09-25] MEDS: LISINOPRIL 20 MG TAB PO SCH (09:23)
[2017-09-25] MEDS: FUROSEMIDE 20 MG/ 2ML VIAL IV SCH (09:23)
[2017-09-25] MEDS: ASPIRIN 81 MG CHEWABLE TABLET PO SCH (09:23)
[2017-09-25] MEDS: predniSONE 20 MG TAB PO SCH (09:23)
[2017-09-25] MEDS: ALLOPURINOL 300 MG TAB PO SCH (09:23)
[2017-09-25 09:53] LABS: Blood Morphology Comment NOT SEEN (NOT SEEN); Platelet Estimate ADEQ; Urine White Blood Cell Casts OK
--- NOTE | 2017-09-25 17:09 | DS ---
Date of Discharge: 09/25/2017 Consultants: Dr. Florian with Cardiology. Procedures: None. Admitting Diagnoses: 1.Acute congestive heart failure. 2.Hypomagnesemia. 3.Hypertension. 4.Hypocalcemia. 5.Elevated troponin. 6.Anemia. 7.Gout. 8.Gastroesophageal reflux disease. Discharge Diagnoses: 1.Acute diastolic congestive heart failure. 2.Hypomagnesemia, replaced. 3.Hypocalcemia, replaced. 4.Elevated troponin secondary to congestive heart failure. No intervention at this time. 5.Essential hypertension, stable. 6.Iron deficiency anemia. 7.Left lower extremity pain, improved. 8.Hyponatremia, improved. 9.Acute kidney injury. 10.Fatty liver infiltration. Hospital Course: The patient is a 57-year-old male, who was admitted to the hospital for shortness o f breath. The patient was found to have new onset CHF. His ejection fraction was 40% to 49%. He wa s seen by Cardiology, Dr. Florian. He was started on CHF guidelines and diuresis. His repeat chest x-ray showed improvement. His symptoms improved significantly. The patient did have some lower extr emity edema, which also improved. The patient also had abdominal and pelvis CT done, which showed so me fatty liver infiltration and ventral hernia. DVT Doppler for lower extremities was negative. The patient otherwise did well. His shortness of breath improved. He did have significant pain in his left lower extremity, which he stated has responded to steroids in the past. He has seen 5 specialis ts including neurologist, orthopedics, bone specialist and vascular surgeon, who have not been able t o pinpoint any etiology of his pain. The patient was started on IV steroids and then p.o. steroids a nd improved. The patient did have multiple electrolyte abnormalities including hypomagnesemia, hypon atremia and hypocalcemia, which were corrected. The patient did have low albumin and his corrected c alcium was 7.6 on discharge. The patient will be on calcium supplements. He needs to have his calci um and magnesium levels to be checked on Friday. The patient otherwise did well. He was started on beta-blockers and MATHEW inhibitor. His elevated troponin was likely due to the CHF. No intervention w as planned by Cardiology. They did wish to do a stress test as an outpatient. The patient was then cleared for discharge from consultants standpoint and was sent home in a stable condition. Activity: As tolerated. Medications: As per medication reconciliation list. Followup: Follow up with primary care physician in 2-3 days. Follow up with watchmaker apprentice, Dr. Charisse singh in 2 weeks. Return to ER for worsening condition. Diet: Low sodium, 1500 mL fluid restriction diet. Total time spent discharging the patient was 45 minutes. Physical Examination: General: Awake, alert, oriented, no acute distress. CV: S1, S2. No murmurs. Peripheral pulses present. Respiratory: Moving air well bilaterally. No wheezing. Abdomen: Soft, nontender, nondistended. Positive bowel sounds. Extremities: No clubbing, cyanosis. 1+ edema. Neuro: Nonfocal. SA/MODL Voice ID: [id number] Report ID: [id number]
== END 2017-09-25 12:47 | disposition home or self-care (01) | DRG 292 ==
LOC: ER 10:07 → ERHOLD 13:32 → 2ND 15:53
PROVIDERS: ADMIT Family Medicine; ATTEND Family Medicine
DX: I11.0 Hypertensive heart disease with heart failure (principal); E87.1 Hypo-osmolality and hyponatremia; N17.9 Acute kidney failure, unspecified; I50.21 Acute systolic (congestive) heart failure; E83.42 Hypomagnesemia; E83.51 Hypocalcemia; D50.9 Iron deficiency anemia, unspecified; M79.605 Pain in left leg; K76.0 Fatty (change of) liver, not elsewhere classified
CPT/HCPCS: 36415; 71046; 74177; 80048; 80053; 80061; 80076; 82607; 82728; 83540; 83735; 83880; 83970; 84145; 84439; 84443; 84466; 84484; 85025; 85610; 85652; 85730; 86140; 87040; 93005; 93306; 93970; 96365; 96375; 97163; 99285; J0610; J1650; J1940; J2270; J2930; J3010; J3475; J7512; Q9967

== ENCOUNTER 2019-05-29 08:32 | Emergency (ER) | payer BC ==
[2019-05-29] MEDS ORDERED: SUCCINYLCHOLINE 20 MG/ML (10 ML) IV ONE (08:33)
[2019-05-29] MEDS ORDERED: LORazepam 2 MG/ML VIAL ONE (08:54)
[2019-05-29] MEDS ORDERED: CEFTRIAXONE/SWI 1gm 1 GM/10 ML SYR ONE (08:54)
[2019-05-29] MEDS ORDERED: KETAMINE HCL 500 MG/5 ML VIAL ONE (09:13)
[2019-05-29] MEDS ORDERED: RSI MEDICATION KIT IV ONE (09:14)
[2019-05-29] MEDS ORDERED: NA CHLORIDE 0.9% 2,000 ML ONE (09:16)
[2019-05-29] MEDS ORDERED: propofoL 1,000 MG/100 ML VIAL IV ONE ×2 (09:27→13:13)
[2019-05-29] MEDS ORDERED: ONDANSETRON 4 MG/2 ML VIAL ONE (09:29)
[2019-05-29] MEDS ORDERED: MIDAZOLAM HCL 2 MG/2 ML INJ ONE ×2 (09:38→11:28)
[2019-05-29 09:56] LABS: Bilirubin Direct 0.1 mg/dL (0-0.2); Bilirubin Total 0.5 mg/dL (0.2-1.0); CKMB Creatine Kinase MB 1.9 ng/mL (0.3-3.6); Magnesium 1.6 mg/dL (1.8-2.4); Potassium 4.8 mmol/L (3.5-5.1); Protein, Total 6.9 g/dL (6.4-8.2); Troponin (Emerg Dept Use Only) 0.09 ng/mL (0.0-0.045)
[2019-05-29] MEDS ORDERED: AZITHROMYCIN IV 500 MG in NA CHLORIDE 0.9% 250 ML IVPB ONE (10:00)
[2019-05-29] MEDS ORDERED: NA CHLORIDE 0.9% 1,000 ML ONE ×2 (10:07→11:29)
[2019-05-29] MEDS ORDERED: ACETAMINOPHEN 650MG/RECT SUPP PR ONE (10:07)
[2019-05-29 10:18] LABS: Absolute Lymphocytes (CBC) 0.4 K/uL (0.7-4.9); Basophils % 0.1 % (0-1.3); Hematocrit 29.6 % (39.6-49.0); Lymphocytes % 1.7 % (15.3-44.8); MPV 6.4 fL (7.6-11.3); RBC Red Blood Cell Count 3.12 M/uL (4.33-5.43)
[2019-05-29] MEDS ORDERED: PANTOPRAZOLE 40 MG INJ ONE (10:22)
[2019-05-29 10:23] LABS: Protime INR 1.08
--- NOTE | 2019-05-29 10:29 | RAD REPORT ---
EXAM DESCRIPTION: Tulio Single View05/29/2019 10:18 am CLINICAL HISTORY: Device placement endotracheal tube placement IMPRESSION: An endotracheal tube has been inserted with its tip well above the donna. A nasogastric tube has been placed into the stomach
--- NOTE | 2019-05-29 10:30 | RAD REPORT ---
EXAM DESCRIPTION: Tulio Single View05/29/2019 9:15 am CLINICAL HISTORY: Congestion COMPARISON: 2017 FINDINGS: Right basilar consolidation Left lung appears clear Heart is mildly enlarged IMPRESSION: Right basilar consolidation probably pneumonia
[2019-05-29] MEDS ORDERED: PANTOPRAZOLE INJ 80 MG in NA CHLORIDE 0.9% 250 ML IV SCH (11:00)
[2019-05-29 11:26] LABS: Anisocytosis 1+; Blood Morphology Comment NOTED (NOT SEEN); Platelet Estimate ADEQ
[2019-05-29 11:42] LABS: Arterial Blood Carboxyhemoglob 1.6 % (0-1.5); Blood O2 Saturation 97.7 % (92-98.5)
--- NOTE | 2019-05-29 12:03 | RAD REPORT ---
EXAM DESCRIPTION: CT - Chest For Pe Angio - 05/29/2019 11:56 am CLINICAL HISTORY: Chest pain. CONGESTION COMPARISON: Abdomen Pelvis W Contrast dated 09/23/2017 TECHNIQUE: CT angiogram of the pulmonary arteries was performed with MIP. All CT scans are performed using dose optimization technique as appropriate and may include automated exposure control or mA/KV adjustment according to patient size. FINDINGS: No evidence of pulmonary thromboembolism. Tip of the ET tube is above the donna. Enteric tube descends into the stomach. No acute aortic finding demonstrated. Large area of lung consolidation is seen involving the right lower lobe compatible with extensive pne umonia. Small area of lung consolidation seen in the left posterior gutter as well. No significant pericardial or pleural fluid. No concerning bony finding. Left adrenal gland thickening is again seen, unchanged. IMPRESSION: No evidence of pulmonary thromboembolism. Large area of lung consolidation right lower lobe compatible with the lobar pneumonia. Small area of developing pneumonia also present left posterior gutter.
[2019-05-29 12:20] LABS: Urine Blood TRACE (NEG); Urine Glucose 1+ (NEG); Urine Protein 1+ (NEG); Urine Specific Gravity 1.025 (1.005-1.030)
--- NOTE | 2019-05-29 12:38 | EDPHYS ---
Physician Documentation [facility] Name: Dilip Delgado Age: 59 yrs Sex: Male : 1960 Arrival Date: 05/29/2019 Time: 08:34 Bed 4 Private MD: ED Physician Edgard Ace HPI: 05/29 09:54 This 59 yrs old Male presents to ER via EMS with complaints of Respiratory ma2 Distress. 09:54 This 59 yrs old Male presents to ER via EMS with complaints of Respiratory ma2 Distress. 09:54 This 59 yrs old Male presents to ER via EMS with complaints of Respiratory ma2 Distress. 09:54 Onset: The symptoms/episode began/occurred gradually. ma2 09:59 The patient or guardian reports cough. Associated signs and symptoms: Pertinent ma2 positives: Pertinent negatives: ear ache, rhinorrhea, sore throat. Severity of symptoms: At their worst the symptoms were moderate in the emergency department the symptoms are unchanged. The patient has not experienced similar symptoms in the past. has sever cough and shortness of breath . Historical: - Allergies: 08:41 No Known Allergies; em - Home Meds: 08:37 allopurinol 100 mg Oral tab [Active]; Tessalon Perles 100 mg Oral cap [Active]; em - PMHx: 08:37 GERD; Gout; em - PSHx: 08:37 Achilles tendon repair - RIGHT; em - Immunization history:: Adult Immunizations unknown. - Social history:: Smoking status: Patient reports the use of cigarette tobacco products. - Ebola Screening: : Patient negative for fever greater than or equal to 101.5 degrees Fahrenheit, and additional compatible Ebola Virus Disease symptoms Patient denies exposure to infectious person Patient denies travel to an Ebola-affected area in the 21 days before illness onset No symptoms or risks identified at this time. - Family history:: not pertinent, pertinent for No immediate family members are acutely ill. - Hospitalizations: : No recent hospitalization is reported. ROS: 09:59 Constitutional: Negative for fever, chills, and weight loss. ma2 09:59 All other systems are negative. Exam: 09:59 ENT: Nares patent. No nasal discharge, no septal abnormalities noted. Tympanic ma2 membranes are normal and external auditory canals are clear. Oropharynx with no redness, swelling, or masses, exudates, or evidence of obstruction, uvula midline. Mucous membranes moist. Neck: Trachea midline, no thyromegaly or masses palpated, and no cervical lymphadenopathy. Supple, full range of motion without nuchal rigidity, or vertebral point tenderness. No Meningismus. Abdomen/GI: Soft, non-tender, with normal bowel sounds. No distension or tympany. No guarding or rebound. No evidence of tenderness throughout. Back: No spinal tenderness. No costovertebral tenderness. Full range of motion. 09:59 Skin: Warm, dry with normal turgor. Normal color with no rashes, no lesions, and no evidence of cellulitis. MS/ Extremity: left LE swelling, right is wnl, Pulses equal, no cyanosis. Neurovascular intact. Full, normal range of motion. Neuro: Awake and alert, GCS 15, oriented to person, place, time, and situation. Cranial nerves II-XII grossly intact. Motor strength 5/5 in all extremities. Sensory grossly intact. Cerebellar exam normal. Normal gait. 09:59 Constitutional: The patient appears anxious, diaphoretic, lethargic, in obvious distress, severely distressed. 09:59 Head/face: Exam is negative for obvious evidence of injury or deformity, deformity, hematoma, laceration(s). 09:59 Chest/axilla: Inspection: normal. 09:59 Cardiovascular: Rate: tachycardic, Heart sounds: normal, Edema: is not appreciated, JVD: is not appreciated. 09:59 Respiratory: severe repiratory distress is noted, Respirations: labored breathing, Breath sounds: rales, that are severe, are heard diffusely, bronchial sounds, rhonchi. Vital Signs: 08:37 BP 156 / 92; Pulse 140; Resp 48; Pulse Ox 100% on R/A; em 08:41 Weight 102.06 kg; Height 6 ft. 0 in. (182.88 cm); Pain 0/10; em 08:45 BP 127 / 91; Pulse 136; Resp 52; Pulse Ox 98% on BiPAP; em 09:18 BP 93 / 64; Pulse 88; Resp 16 S; Pulse Ox 98% on BVM; em 09:25 BP 102 / 54; Pulse 84; Resp 38 S; Pulse Ox 98% on ETT ambu; em 09:30 BP 123 / 77; Pulse 110; Resp 14 A; Pulse Ox 99% on ETT vent; em 09:35 BP 149 / 89; Pulse 110; Resp 18 A; Pulse Ox 98% on ETT vent; em 09:45 BP 123 / 77; Pulse 106; Resp 14 A; Pulse Ox 96% on ETT vent; em 10:00 BP 129 / 55; Pulse 106; Resp 14 A; Temp 101.2(C); Pulse Ox 96% on ETT vent; em 10:15 BP 106 / 50; Pulse 101; Resp 14 A; Temp 101.6(C); Pulse Ox 96% on ETT vent; em 10:30 BP 98 / 55; Pulse 102; Resp 14 A; Temp 101.0(C); Pulse Ox 97% on ETT vent; em 10:40 BP 97 / 46; Pulse 96; Resp 14 A; Temp 100.7(C); Pulse Ox 97% on ETT vent; em 10:50 BP 93 / 46; Pulse 90; Resp 14 A; Temp 100.4(C); Pulse Ox 97% on ETT vent; em 11:00 BP 94 / 50; Pulse 91; Resp 14 A; Temp 100.0(C); Pulse Ox 99% on ETT vent; em 11:15 BP 95 / 52; Pulse 85; Resp 14 A; Temp 99.9(C); Pulse Ox 98% on ETT vent; em 11:20 BP 128 / 64; Pulse 98; Resp 16 A; Temp 99.9(C); Pulse Ox 96% on ETT vent; em 11:20 em 11:35 BP 117 / 84; Pulse 98; Resp 14 A; Temp 99.8(C); Pulse Ox 98% on ETT vent; em 11:50 BP 104 / 51; Pulse 84; Resp 14 A; Temp 99.8(C); Pulse Ox 98% on ETT vent; em 12:05 BP 99 / 46; Pulse 85; Resp 14 A; Temp 99.5(C); Pulse Ox 100% on ETT vent; em 12:08 BP 99 / 46; Pulse 84; Resp 21 A; Temp 99.4(C); Pulse Ox 100% on ETT vent; em 12:15 BP 100 / 49; Pulse 82; Resp 14 A; Pulse Ox 99% on ETT vent; em 12:30 BP 100 / 56; Pulse 81; Resp 14 A; Temp 99.1(C); Pulse Ox 99% on ETT vent; em 12:40 BP 107 / 53; Pulse 80; Resp 14 A; Pulse Ox 99% on ETT vent; em 12:50 BP 110 / 50; Pulse 80; Resp 14 A; Temp 98.9(C); Pulse Ox 98% on ETT vent; em 13:00 BP 107 / 55; Pulse 80; Resp 14 S; Temp 98.9(C); Pulse Ox 98% on ETT vent; em 13:10 BP 114 / 54; Pulse 79; Resp 14 A; Pulse Ox 98% on ETT vent; em 13:25 BP 114 / 55; Pulse 79; Resp 14 A; Pulse Ox 98% on ETT vent; em 13:35 BP 115 / 58; Pulse 79; Resp 14 A; Temp 98.8(C); Pulse Ox 98% on ETT vent; em 14:41 BP 108 / 58; Pulse 77 MON; Resp 26 A; Temp 98.8(C); Pulse Ox 99% on 45% FiO2 ETT vent; em 15:00 BP 109 / 56; Pulse 74; Resp 24; Pulse Ox 99% on 45% FiO2 ETT vent; em 15:10 BP 117 / 55; Pulse 79; Resp 23 A; Pulse Ox 100% on 45% FiO2 ETT vent; em 15:36 BP 122 / 89; Pulse 79 MON; Resp 23 A; Pulse Ox 99% on 45% FiO2 ETT vent; em 15:50 BP 109 / 54; Pulse 73; Resp 18; Pulse Ox 99% on 45% FiO2 ETT vent; hb 16:00 BP 111 / 68; Pulse 78; Resp 28; Pulse Ox 100% on 45% FiO2 ETT vent; hb 16:10 BP 130 / 65; Pulse 77; Resp 27; Pulse Ox 100% on 45% FiO2 ETT vent; hb 08:41 Body Mass Index 30.52 (102.06 kg, 182.88 cm) em 11:20 Restraint order: Pt attempting to pull out ET tube, was notifed. em Ventilator: 09:40 Fi02: 45%; Rate: 16min; T.V.: 550ml; Peep: 0cm; em 14:38 Fi02: 75%; Rate: 14min; T.V.: 550ml; Peep: 5cm; em Procedures: 09:59 Intubation: with 7.5 mm ETT. was successful on first attempt. Ventilated with la2 ventilator. Cricoid pressure applied during procedure. Tube secured with ETT balderas Placement verified by CXR. MDM: 08:34 Patient medically screened. ma2 09:59 Differential diagnosis: obstructed airway, bronchitis, flu, URI, pneumonia, possible ma2 PE. Antibiotic administration: Data reviewed: vital signs, nurses notes. 12:33 Counseling: I had a detailed discussion with the patient and/or guardian regarding: the ma2 historical points, exam findings, and any diagnostic results supporting the discharge/admit diagnosis, the presence of at least one elevated blood pressure reading (>120/80) during this emergency department visit, the need for further work-up and treatment in the hospital. Response to treatment: the patient's symptoms have markedly improved after treatment. 13:19 ED course: now patient has GI bleed, upon discussing with , this is been going on ma2 for the last few days. After discussion with dr. Camacho, as no gi available in our hospital will transfer for higher level of care.. 05/29 08:37 Order name: Basic Metabolic Panel [facility] 05/29 08:37 Order name: CBC with Diff 05/29 08:37 Order name: LFT's [facility] 05/29 08:37 Order name: Magnesium [facility] 05/29 08:37 Order name: NT PRO-BNP; Complete Time: 10:06 [facility] 05/29 08:37 Order name: PT-INR; Complete Time: 11:50 [facility] 05/29 08:37 Order name: Troponin (emerg Dept Use Only); Complete Time: 10:06 la05/29 08:37 Order name: Blood Culture Adult (2) 05/29 08:37 Order name: Ckmb; Complete Time: 10:06 [facility] 05/29 08:37 Order name: CPK; Complete Time: 10:06 [facility] 05/29 08:37 Order name: D-Dimer; Complete Time: 11:50 [facility] 05/29 08:37 Order name: Lipase; Complete Time: 10:06 [facility] 05/29 08:37 Order name: Ptt, Activated; Complete Time: 11:50 [facility] 05/29 08:38 Order name: Basic Metabolic Panel; Complete Time: 10:06 [facility] 05/29 08:38 Order name: CBC with Automated Diff; Complete Time: 11:50 [facility] 05/29 08:38 Order name: Liver (Hepatic) Function; Complete Time: 10:06 [facility] 05/29 08:38 Order name: Magnesium; Complete Time: 10:06 [facility] 05/29 08:56 Order name: Lactate [facility] 05/29 08:56 Order name: Lactate; Complete Time: 11:50 [facility] 05/29 09:07 Order name: Glucose, Ancillary Testing; Complete Time: 09:40 [facility] 05/29 10:02 Order name: Stool Culture 05/29 10:03 Order name: Stool Culture [facility] 05/29 10:06 Order name: Flu; Complete Time: 13:40 [facility] 05/29 10:10 Order name: Urine Dipstick--Ancillary (enter results); Complete Time: 12:32 05/29 11:27 Order name: Manual Differential; Complete Time: 11:50 [facility] 05/29 11:42 Order name: ABG Arterial Blood Gas; Complete Time: 12:19 [facility] 05/29 12:53 Order name: CKMB Creatine Kinase MB [facility] 05/29 08:37 Order name: Chest For PE Angio CT; Complete Time: 12:19 [facility] 05/29 08:37 Order name: BIPAP [facility] 05/29 08:56 Order name: Chest Single View XRAY; Complete Time: 11:50 [facility] 05/29 10:12 Order name: XRAY CXR (1 view); Complete Time: 11:50 05/29 12:53 Order name: Creatine Phosphokinase [facility] 05/29 12:53 Order name: Troponin I [facility] 05/29 08:37 Order name: EKG; Complete Time: 08:38 [facility] 05/29 08:37 Order name: Cardiac monitoring; Complete Time: 08:57 [facility] 05/29 08:37 Order name: EKG - Nurse/Tech; Complete Time: 08:57 [facility] 05/29 08:37 Order name: IV Saline Lock; Complete Time: 08:57 [facility] 05/29 08:37 Order name: Labs collected and sent; Complete Time: 08:56 [facility] 05/29 08:37 Order name: O2 Per Protocol; Complete Time: 08:56 [facility] 05/29 08:37 Order name: O2 Sat Monitoring; Complete Time: 08:56 la05/29 08:37 Order name: Castaneda; Complete Time: 13:04 [facility] 05/29 08:37 Order name: Call for Old EKG; Complete Time: 08:45 la05/29 09:05 Order name: Labs - recollect needed: blue and lavender tube recollection needed; eb Complete Time: 10:58 05/29 12:53 Order name: CONS Physician Consult [facility] 05/29 13:57 Order name: Restrain Patient: VO at 1120; Complete Time: 13:57 em Administered Medications: 08:37 Drug: Xopenex (3) 1.25 mg Route: Inhalation; iw 08:40 Drug: Magnesium Sulfate 2 grams Route: IVPB; Infused Over: 2 hrs; Site: left em antecubital; 09:30 Follow up: Response: No adverse reaction; IV Status: Completed infusion; Infused over [address] Db HOBBS. 08:52 Drug: Ativan 2 mg Route: IVP; Site: left antecubital; iw 09:07 Follow up: Response: No adverse reaction; No change in condition em 08:58 CANCELLED (Physician Discretion): Xopenex 1.25 mg Inhalation once iw 09:02 Drug: Rocephin 1 grams Route: IV; Rate: calculated rate; Site: left antecubital; em 09:15 Follow up: Response: No adverse reaction; IV Status: Completed infusion; IV Intake: 10mlhb 09:02 Drug: NS 0.9% (30 ml/kg) 30 ml/kg Route: IV; Rate: bolus; Site: right hand; em 10:30 Follow up: IV Status: Completed infusion; IV Intake: 3000ml em 09:17 Drug: Ketamine 100 mg Route: IVP; Site: right hand; em 09:20 Follow up: Response: No adverse reaction em 09:19 Drug: Succinylcholine 100 mg Route: IVP; Site: right hand; em 09:20 Follow up: Response: No adverse reaction em 09:23 Drug: Propofol 5 mcg/kg/min Route: IV; Rate: calculated rate; Site: left antecubital; em 13:50 Follow up: Drip titrated up and infusing at 35mcg/kg/min at 1015. Drip titrated down em and now infusing at 15mcg/kg/min at 1205. 16:33 Follow up: Response: No adverse reaction; IV Status: Infusion continued upon transfer; hb IV Intake: 105ml 09:25 Drug: Zofran 4 mg Route: IVP; Site: right hand; em 09:30 Follow up: Response: No adverse reaction em 09:30 Drug: AZITHromycin 500 mg Route: IVPB; Infused Over: 1 hrs; Site: left antecubital; aa5 10:30 Follow up: Response: No adverse reaction; IV Status: Completed infusion aa5 09:35 Drug: Versed 2 mg Route: IVP; Site: left antecubital; em 09:46 Follow up: Response: No adverse reaction; No change in condition em 09:46 Drug: Versed 2 mg Route: IVP; Site: left antecubital; em 10:00 Follow up: Response: No adverse reaction; Patient is sedated em 10:20 Drug: Tylenol Suppository 10 mg/kg {Note: aministered 650mg per MD VO.} Route: MT; em 13:55 Follow up: Response: No adverse reaction; Temperature is decreased em 10:30 Drug: Pantoprazole 8 mg/hr Route: IV; Rate: 25 ml/hr; Site: left hand; aa5 16:32 Follow up: Response: No adverse reaction; IV Status: Infusion continued upon transfer; hb IV Intake: 150ml 10:55 Drug: Pantoprazole 80 mg Route: IVP; Site: left hand; em 11:05 Follow up: Response: No adverse reaction em 10:56 Not Given (Physician Discretion): Lovenox 80 mg Sub-Q once em 11:20 Drug: Versed 4 mg Route: IVP; Site: left antecubital; em 11:25 Follow up: Response: No adverse reaction; Patient is sedated em 15:03 Drug: Versed 2 mg Route: IVP; Site: left antecubital; em 15:15 Follow up: Response: No adverse reaction; Marked relief of symptoms; Patient is sedated hb 16:15 Drug: Versed 2 mg Route: IVP; Site: left antecubital; hb 16:20 Follow up: Response: No adverse reaction; Marked relief of symptoms; Patient is sedated hb Disposition: 01/18/20 13:24 Transfer ordered to Other Acute Care Facility. Diagnosis are Acute respiratory failure, Gastrointestinal hemorrhage, unspecified, Pneumonia due to other specified bacteria, Severe sepsis without septic shock. - Reason for transfer: Higher level of care. - Accepting physician is OS. - Condition is Critical. - Problem is new. - Symptoms are unchanged. Critical care time excluding procedures: 12:33 Critical care time: Bedside Care: 35 minutes, Consultation: 20 minutes, Family ma2 Intervention: 15 minutes. Total time: 70 minutes Signatures: Dispatcher [employer] Ras Garza RN Nicki Elliott RN PATITO iw Grace Esposito RN RN aa5 Pavithra Cisse RN RN Edgard Ace MD MD ma2 Valerie Mckeon Corrections: (The following items were deleted from the chart) 08:58 08:37 Xopenex 1.25 mg Inhalation once ordered. la2 iw 12:36 12:35 05/29/2019 12:35 Discharged to Home. Impression: Pneumonia due to other specified ma2 bacteria; Severe sepsis without septic shock; Acute respiratory failure. Condition is Critical. Forms are Medication Reconciliation Form, Thank You Letter, Antibiotic Education, Prescription Opioid Use. Follow up: Private Physician; When: Tomorrow; Reason: Continuance of care. la2 13:19 12:37 Hospitalization Ordered by Tanya Camacho MD for Inpatient Admission. ma2 Preliminary diagnosis is Acute respiratory failure; Pneumonia due to other specified bacteria; Severe sepsis without septic shock. Bed requested for Intensive Care Unit. Status is Inpatient Admission. Condition is Critical. Problem is new. Symptoms are unchanged. UTI on Admission? No. ma2 16:35 13:24 05/29/2019 13:24 Transfer ordered to Other Acute Care Facility. Diagnosis is em Acute respiratory failure; Gastrointestinal hemorrhage, unspecified; Pneumonia due to other specified bacteria; Severe sepsis without septic shock. Reason for transfer: Higher level of care. Accepting physician is OS. Condition is Critical. Problem is new. Symptoms are unchanged. ma2
--- NOTE | 2019-05-29 12:38 | ER ---
Nurse's Notes [facility] Name: Dilip Delgado Age: 59 yrs Sex: Male : 1960 Arrival Date: 05/29/2019 Time: 08:34 Bed 4 Private MD: Diagnosis: Acute respiratory failure;Gastrointestinal hemorrhage, unspecified;Pneumonia due to other specified bacteria;Severe sepsis without septic shock Presentation: 05/29 08:34 Presenting complaint: EMS states: called out for respiratory distress that started at em 0300 this morning, reports taking Tessalon pearls for recent cough. Transition of care: patient was not received from another setting of care. Onset of symptoms was May 29, 2019. Risk Assessment: Do you want to hurt yourself or someone else? Patient reports no desire to harm self or others. Initial Sepsis Screen: Does the patient meet any 2 criteria? RR > 20 per min. HR > 90 bpm. Yes Does the patient have a suspected source of infection? Yes: Productive cough/pneumonia If YES to both, name of provider notified: Edgard Lau MD. Care prior to arrival: Medication(s) given: Albuterol Neb x 1, Atrovent Neb x 1, Solu-Medrol 125 mg. 08:34 Method Of Arrival: EMS: [facility] em 08:34 Acuity: CRISTIANA 2 em Historical: - Allergies: 08:41 No Known Allergies; em - Home Meds: 08:37 allopurinol 100 mg Oral tab [Active]; Tessalon Perles 100 mg Oral cap [Active]; em - PMHx: 08:37 GERD; Gout; em - PSHx: 08:37 Achilles tendon repair - RIGHT; em - Immunization history:: Adult Immunizations unknown. - Social history:: Smoking status: Patient reports the use of cigarette tobacco products. - Ebola Screening: : Patient negative for fever greater than or equal to 101.5 degrees Fahrenheit, and additional compatible Ebola Virus Disease symptoms Patient denies exposure to infectious person Patient denies travel to an Ebola-affected area in the 21 days before illness onset No symptoms or risks identified at this time. - Family history:: not pertinent, pertinent for No immediate family members are acutely ill. - Hospitalizations: : No recent hospitalization is reported. Screenin:37 Abuse screen: Denies threats or abuse. Nutritional screening: No deficits noted. em Tuberculosis screening: No symptoms or risk factors identified. Fall Risk Assessment: 08:37 General: Appears distressed, uncomfortable, Behavior is cooperative, restless. Pain: em Denies pain. Neuro: Level of Consciousness is awake, alert, obeys commands, Oriented to person, place, time, situation, Appropriate for age. Cardiovascular: Denies chest pain, Rhythm is sinus tachycardia. Respiratory: Reports shortness of breath at rest cough that is Airway is patent Respiratory effort is labored, using tripod position, Breath sounds are diminished bilaterally. Derm: Skin is intact, Skin is diaphoretic, Skin is pale, Skin temperature is cool. 08:50 Reassessment: No change in condition, labored breathing noted, tachypnea noted, pt em tolerating Bi-PAP well without improvement of symptoms. MD was notified. . 09:07 Reassessment: No change in condition noted, labored breathing and tachypnea noted, MD em was notified. . 09:20 Neuro: Level of Consciousness is intubated and sedated . Respiratory: Airway via oral em intubation Respiratory effort is assisted via ET tube Respiratory pattern is symmetrical, Breath sounds are diminished bilaterally. Derm: Skin is moist, Skin is red, Skin temperature is warm. 10:20 Reassessment: pt intubated and sedated, assisted ventilations via ET tube, at em bedside, updated on status . 10:55 Reassessment: Lactate recollected and sent to lab. . em 11:20 Reassessment: pt attempting to pull ET tube, provider notified, received verbal orders em for restraints . 11:25 Reassessment: pt to CT via stretcher accompanied with RT and PATITO Edwards. em 12:10 Reassessment: returned back from CT. em 12:15 Reassessment: pt intubated and sedated, assisted ventilations via ET tube, warm pink em and dry. 13:00 Reassessment: pt intubated and sedated, assisted ventilations via ET tube. em 14:00 Reassessment: pt intubated and sedated, assisted ventilations via ET tube. em 14:10 Reassessment: awake and pt opening eyes, fighting ventilator, MD notified, increased em propofol drip per protocol. 14:37 Reassessment: pt intubated and sedated, assisted ventilations via ET tube. em 15:02 Reassessment: awake and fighting ventilator, opening eyes spontaneously, provider at em bedside, new medication orders received. 15:15 Reassessment: pt intubated and sedated, assisted ventilations via ET tube. em 15:41 Reassessment: report given to PATITO Streeter at [facility], pending EMS transportation. em 16:10 Reassessment: report given to EMS, pt awake and fighting ventilator, provider hb notified, new medication orders received. Vital Signs: 08:37 BP 156 / 92; Pulse 140; Resp 48; Pulse Ox 100% on R/A; em 08:41 Weight 102.06 kg; Height 6 ft. 0 in. (182.88 cm); Pain 0/10; em 08:45 BP 127 / 91; Pulse 136; Resp 52; Pulse Ox 98% on BiPAP; em 09:18 BP 93 / 64; Pulse 88; Resp 16 S; Pulse Ox 98% on BVM; em 09:25 BP 102 / 54; Pulse 84; Resp 38 S; Pulse Ox 98% on ETT ambu; em 09:30 BP 123 / 77; Pulse 110; Resp 14 A; Pulse Ox 99% on ETT vent; em 09:35 BP 149 / 89; Pulse 110; Resp 18 A; Pulse Ox 98% on ETT vent; em 09:45 BP 123 / 77; Pulse 106; Resp 14 A; Pulse Ox 96% on ETT vent; em 10:00 BP 129 / 55; Pulse 106; Resp 14 A; Temp 101.2(C); Pulse Ox 96% on ETT vent; em 10:15 BP 106 / 50; Pulse 101; Resp 14 A; Temp 101.6(C); Pulse Ox 96% on ETT vent; em 10:30 BP 98 / 55; Pulse 102; Resp 14 A; Temp 101.0(C); Pulse Ox 97% on ETT vent; em 10:40 BP 97 / 46; Pulse 96; Resp 14 A; Temp 100.7(C); Pulse Ox 97% on ETT vent; em 10:50 BP 93 / 46; Pulse 90; Resp 14 A; Temp 100.4(C); Pulse Ox 97% on ETT vent; em 11:00 BP 94 / 50; Pulse 91; Resp 14 A; Temp 100.0(C); Pulse Ox 99% on ETT vent; em 11:15 BP 95 / 52; Pulse 85; Resp 14 A; Temp 99.9(C); Pulse Ox 98% on ETT vent; em 11:20 BP 128 / 64; Pulse 98; Resp 16 A; Temp 99.9(C); Pulse Ox 96% on ETT vent; em 11:20 em 11:35 BP 117 / 84; Pulse 98; Resp 14 A; Temp 99.8(C); Pulse Ox 98% on ETT vent; em 11:50 BP 104 / 51; Pulse 84; Resp 14 A; Temp 99.8(C); Pulse Ox 98% on ETT vent; em 12:05 BP 99 / 46; Pulse 85; Resp 14 A; Temp 99.5(C); Pulse Ox 100% on ETT vent; em 12:08 BP 99 / 46; Pulse 84; Resp 21 A; Temp 99.4(C); Pulse Ox 100% on ETT vent; em 12:15 BP 100 / 49; Pulse 82; Resp 14 A; Pulse Ox 99% on ETT vent; em 12:30 BP 100 / 56; Pulse 81; Resp 14 A; Temp 99.1(C); Pulse Ox 99% on ETT vent; em 12:40 BP 107 / 53; Pulse 80; Resp 14 A; Pulse Ox 99% on ETT vent; em 12:50 BP 110 / 50; Pulse 80; Resp 14 A; Temp 98.9(C); Pulse Ox 98% on ETT vent; em 13:00 BP 107 / 55; Pulse 80; Resp 14 S; Temp 98.9(C); Pulse Ox 98% on ETT vent; em 13:10 BP 114 / 54; Pulse 79; Resp 14 A; Pulse Ox 98% on ETT vent; em 13:25 BP 114 / 55; Pulse 79; Resp 14 A; Pulse Ox 98% on ETT vent; em 13:35 BP 115 / 58; Pulse 79; Resp 14 A; Temp 98.8(C); Pulse Ox 98% on ETT vent; em 14:41 BP 108 / 58; Pulse 77 MON; Resp 26 A; Temp 98.8(C); Pulse Ox 99% on 45% FiO2 ETT vent; em 15:00 BP 109 / 56; Pulse 74; Resp 24; Pulse Ox 99% on 45% FiO2 ETT vent; em 15:10 BP 117 / 55; Pulse 79; Resp 23 A; Pulse Ox 100% on 45% FiO2 ETT vent; em 15:36 BP 122 / 89; Pulse 79 MON; Resp 23 A; Pulse Ox 99% on 45% FiO2 ETT vent; em 15:50 BP 109 / 54; Pulse 73; Resp 18; Pulse Ox 99% on 45% FiO2 ETT vent; hb 16:00 BP 111 / 68; Pulse 78; Resp 28; Pulse Ox 100% on 45% FiO2 ETT vent; hb 16:10 BP 130 / 65; Pulse 77; Resp 27; Pulse Ox 100% on 45% FiO2 ETT vent; hb 08:41 Body Mass Index 30.52 (102.06 kg, 182.88 cm) em 11:20 Restraint order: Pt attempting to pull out ET tube, was notifed. em ED Course: 08:34 Patient arrived in ED. em 08:34 Edgard Lau MD is Attending Physician. ma2 08:36 Triage completed. em 08:37 Arm band placed on. em 08:37 Patient has correct armband on for positive identification. Placed in gown. Bed in low em position. Call light in reach. Side rails up X2. golf cart maker on. Pulse ox on. NIBP on. 08:37 Maintain EMS IV. Dressing intact. Good blood return noted. Site clean \T\ dry. Gauge \T\ em site: 18 LAC. 08:45 Initial lab(s) drawn, by me, sent to lab. em 08:45 First set of blood cultures drawn by ED staff. em 08:50 Inserted saline lock: 20 gauge in right hand, using aseptic technique. Blood collected. em 09:00 EKG done, by ED staff, reviewed by Edgard Lau MD. jb1 09:02 Ras Merrill, RN is Primary Nurse. em 09:10 Radiology exam delayed due to lab results not completed at this time. (BUN/Creatinine). bq 09:14 Chest Single View XRAY In Process Unspecified. EDMS 09:20 Assisted provider with intubation using 7.5 mm ETT via oral route. ET tube secured at em teeth. Set up intubation tray. Intubated by Edgard Lau MD Placement verified by CO2 detector w/ + color change, auscultating bilateral breath sounds, Patient tolerated well. 09:28 NGT: inserted 16 Fr. via left nare. verified return of gastric contents, to em intermittent suction. Returned gastric contents. Patient tolerated well. 10:00 Brambila cath inserted, using sterile technique, 16 Fr[address], balloon inflated, to em gravity drainage, urine specimen collected. other Criticare brambila. 10:05 Note: spoke w/dr lau about elevated creat. pt to be hydrated first before doing bq exam. lisa notified \T\ to call when pts ready. 10:19 XRAY CXR (1 view) In Process Unspecified. EDMS 11:57 CT completed. Patient tolerated procedure well. Patient moved back from CT. bq 11:58 Chest For PE Angio CT In Process Unspecified. EDMS 12:36 Tanya Camacho MD is Hospitalizing Provider. ma 13:13 initiated a transfer with Robbie from the [facility]. eb 13:[address] Joy the GI travel accommodations rater for [facility] with Dr. Lau for patient eb transfer consultation. 14:[address] Sorto the cylinder steamer travel accommodations rater for [facility] with Dr. Lau for eb patient transfer consultation. 14:52 administrative approval given by Robbie Spear/ patient has been accepted to [facility] bed 7216/ Vinny Arreola has accepted the patient in transfer/ report to be called to [phone]. 16:35 Patient transferred, IV remains in place. em Restraints: 11:20 Non-Violent Restraint: Order obtained. Initiated on May 29, 2019 at 11:20 em Actions/Behavior observed: pt is intubated . Circulation: Within defined parameters (based on Cardiovascular assessment) Skin integrity: Within defined parameters (based on Integumentary assessment) Restraint status: Soft wrist restraint (Right) Started. Soft wrist restraint (Left) Started. Administered Medications: 08:37 Drug: Xopenex (3) 1.25 mg Route: Inhalation; iw 08:40 Drug: Magnesium Sulfate 2 grams Route: IVPB; Infused Over: 2 hrs; Site: left em antecubital; 09:30 Follow up: Response: No adverse reaction; IV Status: Completed infusion; Infused over [address] Db HOBBS. 08:52 Drug: Ativan 2 mg Route: IVP; Site: left antecubital; iw 09:07 Follow up: Response: No adverse reaction; No change in condition em 08:58 CANCELLED (Physician Discretion): Xopenex 1.25 mg Inhalation once iw 09:02 Drug: Rocephin 1 grams Route: IV; Rate: calculated rate; Site: left antecubital; em 09:15 Follow up: Response: No adverse reaction; IV Status: Completed infusion; IV Intake: 10mlhb 09:02 Drug: NS 0.9% (30 ml/kg) 30 ml/kg Route: IV; Rate: bolus; Site: right hand; em 10:30 Follow up: IV Status: Completed infusion; IV Intake: 3000ml em 09:17 Drug: Ketamine 100 mg Route: IVP; Site: right hand; em 09:20 Follow up: Response: No adverse reaction em 09:19 Drug: Succinylcholine 100 mg Route: IVP; Site: right hand; em 09:20 Follow up: Response: No adverse reaction em 09:23 Drug: Propofol 5 mcg/kg/min Route: IV; Rate: calculated rate; Site: left antecubital; em 13:50 Follow up: Drip titrated up and infusing at 35mcg/kg/min at 1015. Drip titrated down em and now infusing at 15mcg/kg/min at 1205. 16:33 Follow up: Response: No adverse reaction; IV Status: Infusion continued upon transfer; hb IV Intake: 105ml 09:25 Drug: Zofran 4 mg Route: IVP; Site: right hand; em 09:30 Follow up: Response: No adverse reaction em 09:30 Drug: AZITHromycin 500 mg Route: IVPB; Infused Over: 1 hrs; Site: left antecubital; aa5 10:30 Follow up: Response: No adverse reaction; IV Status: Completed infusion aa5 09:35 Drug: Versed 2 mg Route: IVP; Site: left antecubital; em 09:46 Follow up: Response: No adverse reaction; No change in condition em 09:46 Drug: Versed 2 mg Route: IVP; Site: left antecubital; em 10:00 Follow up: Response: No adverse reaction; Patient is sedated em 10:20 Drug: Tylenol Suppository 10 mg/kg {Note: aministered 650mg per MD VO.} Route: VT; em 13:55 Follow up: Response: No adverse reaction; Temperature is decreased em 10:30 Drug: Pantoprazole 8 mg/hr Route: IV; Rate: 25 ml/hr; Site: left hand; aa5 16:32 Follow up: Response: No adverse reaction; IV Status: Infusion continued upon transfer; hb IV Intake: 150ml 10:55 Drug: Pantoprazole 80 mg Route: IVP; Site: left hand; em 11:05 Follow up: Response: No adverse reaction em 10:56 Not Given (Physician Discretion): Lovenox 80 mg Sub-Q once em 11:20 Drug: Versed 4 mg Route: IVP; Site: left antecubital; em 11:25 Follow up: Response: No adverse reaction; Patient is sedated em 15:03 Drug: Versed 2 mg Route: IVP; Site: left antecubital; em 15:15 Follow up: Response: No adverse reaction; Marked relief of symptoms; Patient is sedated hb 16:15 Drug: Versed 2 mg Route: IVP; Site: left antecubital; hb 16:20 Follow up: Response: No adverse reaction; Marked relief of symptoms; Patient is sedated hb Intake: 09:15 IV: 10ml; Total: 10ml. hb 10:30 IV: 3000ml; Total: 3010ml. em 16:32 IV: 150ml; Total: 3160ml. hb 16:33 IV: 105ml; Total: 3265ml. hb Ventilator: 09:40 Fi02: 45%; Rate: 16min; T.V.: 550ml; Peep: 0cm; em 14:38 Fi02: 75%; Rate: 14min; T.V.: 550ml; Peep: 5cm; em Outcome: 12:35 Discharge ordered by . ma2 12:37 Decision to Hospitalize by Provider. ma2 13:24 ER care complete, transfer ordered by MD. edwardo 16:34 Transferred by ground EMS to [facility], Transfer form completed. em X-rays sent w/ patient. 16:34 Condition: good 16:34 Instructed on the need for transfer, Demonstrated understanding of instructions. 16:35 Patient left the ED. em Signatures: Dispatcher [employer] ED Tristian Fernandes jb1 Sheila Cintron Edgar RN RN em Nicki Orozco RN PATITO Lisa Esposito RN RN aa5 Pavithra Cisse RN RN Edgard Lau MD MD ma2 Valerie Mckeon Corrections: (The following items were deleted from the chart) 09:06 08:50 Initial lab(s) drawn, by me, sent to lab. em em 13:48 09:40 BP 149 / 89; Pulse 110bpm; Resp 14bpm; Assisted; Pulse Ox 99% ET / Ventilator; em em 14:04 11:20 Non-Violent Restraint: Order obtained. Initiated on May 29, 2019 at 11:20 em Circulation: Within defined parameters (based on Cardiovascular assessment) Skin integrity: Within defined parameters (based on Integumentary assessment) Restraint status: Soft wrist restraint (Right) Started. Soft wrist restraint (Left) Started. em 14:05 08:37 General: Appears uncomfortable, Behavior is cooperative, restless, em em
[2019-05-29] MEDS ORDERED: ACETAMINOPHEN 500 MG TAB PO PRN (12:48)
[2019-05-29] MEDS ORDERED: ONDANSETRON 4 MG/2 ML VIAL IV PRN (12:48)
[2019-05-29] MEDS ORDERED: NA CHLORIDE 0.9% 1,000 ML IV SCH (13:00)
[2019-05-29] MEDS ORDERED: ALBUTEROL 2.5 MG/3 ML NEB SOL NEB SCH (14:00)
[2019-05-29] MEDS ORDERED: ENOXAPARIN 40 MG/0.4 ML SQ SCH (14:00)
[2019-05-29] MEDS ORDERED: IPRATROPIUM BROM 0.5MG/2.5ML NEB SCH (14:00)
[2019-05-29] MEDS ORDERED: INSULIN -REGULAR HUMAN 50 UNIT/0.5 ML ML SQ SCH (16:30)
[2019-05-29 17:31] VITALS: TEMP 98.8
[2019-05-29 17:40] VITALS: O2SAT 100
[2019-05-29 17:41] VITALS: BP 130/65
--- NOTE | 2019-05-30 14:01 | EKG ---
Test Date: 2019-05-29 Test Time: 08:57:35 Securities Broker: BELKYS MEASUREMENT RESULTS: Intervals: Rate: 136 CO: 138 QRSD: 84 QT: 278 QTc: 418 [place]: P: 73 CO: 138 QRS: 90 T: 55 INTERPRETIVE STATEMENTS: Sinus tachycardia with occasional premature ventricular complexes and fusion complexes Rightward axis Nonspecific ST and T wave abnormality Abnormal ECG Compared to ECG 09/24/2017 22:42:51 Fusion complex(es) now present Ventricular premature complex(es) now present Right-axis deviation now present Sinus rhythm no longer present ST (T wave) deviation still present Electronically Signed On 05-30-19 13:59:10 GREASE RACK WORKER by Glenn Florian
== END 2019-05-29 16:35 ==
LOC: ER 08:32 → UNDOADMIN 12:52 → ERHOLD 12:52 → ER 16:35
DX: J15.8 Pneumonia due to other specified bacteria (principal); R65.20 Severe sepsis without septic shock; K92.2 Gastrointestinal hemorrhage, unspecified; F17.210 Nicotine dependence, cigarettes, uncomplicated; K21.9 Gastro-esophageal reflux disease without esophagitis
CPT/HCPCS: 96365; 96367; 96368; 93005; 87040 ×2; 87045; 85025; 80048; 36415; 83735; 82550; 85610; 82947; 85379; 80076; 87046; 83605; 85730; 81003; 84484; 82553; 83690; 83880; 87804 ×2; 71275; 71045 ×2; 94002; 82805; 31500; 51702; 96375; 99291; 99292; 96366; Q9967; J0330; J2704 ×2; C9113 ×2; J0456; J2250 ×2; J0696; J7030 ×5; J2405

== ENCOUNTER 2024-01-10 03:27 | Inpatient (IN) | payer BC ==
[2024-01-10] MEDS ORDERED: CEFTRIAXONE 1000 MG/VIAL ONE (03:43)
[2024-01-10] MEDS ORDERED: ONDANSETRON 4 MG/2 ML VIAL ONE (03:43)
[2024-01-10] MEDS ORDERED: NA CHLORIDE 0.9% 1,000 ML ONE (03:43)
[2024-01-10] MEDS ORDERED: NA CHLORIDE 0.9% 50 ML ONE (03:43)
[2024-01-10] MEDS ORDERED: Magnesium Sulfate 2gm IVPB 2 G/50 ML BAG IV ONE (04:09)
[2024-01-10] MEDS ORDERED: IPRATROPIUM BROM 0.5MG/2.5ML ONE (04:22)
[2024-01-10] MEDS ORDERED: ALBUTEROL 2.5 MG/3 ML NEB SOL ONE (04:22)
[2024-01-10 04:26] LABS: Absolute Lymphocytes (CBC) 0.9 K/uL (0.7-4.9); Absolute Monocytes 1.6 K/uL (0.1-1.3); Absolute Neutrophil 26.2 K/uL (1.8-8.0); Basophils % 0.1 % (0-1.3); Hematocrit 45.4 % (39.6-49.0); Hemoglobin 14.7 g/dL (13.6-17.9); Lymphocytes % 3.3 % (15.3-44.8); MCH 32.1 pg (27.0-35.0); MCHC 32.4 g/dL (32.0-36.0); MCV 98.9 fL (80-100); MPV 8.1 fL (7.6-11.3); Monocytes % 5.5 % (3.3-12.3); Neutrophils % 91.1 % (41.7-73.7); Platelets 379 thou/uL (152-406); RBC Red Blood Cell Count 4.59 M/uL (4.33-5.43); Red Cell Distribution Width 15.4 % (12.1-15.2)
[2024-01-10 04:27] LABS: D-Dimer 0.402 FEUug/mL (0-0.500); PTT, Activated Partial Thromb 27.7 SECONDS (24.3-36.9); Protime INR 1.07
[2024-01-10 04:47] LABS: Albumin 3.2 g/dL (3.4-5.0); Albumin/Globulin Ratio 0.9 (1.1-1.8); Anion Gap 11.2 mEq/L (5.0-15.0); Bilirubin Direct 0.2 mg/dL (0-0.2); Bilirubin Indirect, Calculated 0.2 mg/dL (0.2-0.8); Bilirubin Total 0.4 mg/dL (0.2-1.0); Globulin 3.7 g/dL (2.3-3.5); Magnesium 1.8 mg/dL (1.6-2.4); Potassium 4.2 mEq/L (3.5-5.1); Protein, Total 6.9 g/dL (6.4-8.2); Thyroid Stimulating Hormone 0.664 uIU/mL (0.358-3.740)
[2024-01-10] MEDS ORDERED: MORPHINE 4 MG/ML SYR ONE (05:01)
[2024-01-10 05:03] LABS: Troponin High Sensitivity 60.5 pg/mL (<58.9)
[2024-01-10 05:09] LABS: Band Neutrophils 7 % (0-1); Blood Morphology Comment NOT SEEN (NOT SEEN); Differential Total Cells Count 100; Lymphocytes 2 % (15-42); Monocytes 4 % (0-10); Platelet Estimate ADEQ; Reactive Lymphocytes 1 %; Segmented Neutrophils 86 % (40-80)
[2024-01-10 05:28] LABS: Blood Gas Oxyhemoglobin 94.3 % (94-97); Blood Gas THB 14.4 g/dl (12-18)
[2024-01-10] MEDS ORDERED: HEPARIN 5000 UNIT/ML 1 ML VIAL ONE (05:40)
[2024-01-10] MEDS ORDERED: HEPARIN/D5W 25,000 UNIT/500 ML BAG IV ONE (05:41)
[2024-01-10] MEDS ORDERED: ASPIRIN EC 81 MG TAB PO ONE (05:43)
[2024-01-10] MEDS ORDERED: ASPIRIN 81 MG CHEWABLE TABLET ONE (05:55)
--- NOTE | 2024-01-10 06:12 | ER ---
Nurse's Notes [facility] Name: Dilip Delgado Age: 63 yrs Sex: Male : 1960 Arrival Date: 01/10/2024 Time: 03:27 Bed 3 Private MD: Diagnosis: COPD/ Chronic obstructive pulmonary disease with (acute) exacerbation;NSTEMI, Respiratory failure acute, with hypoxemia and hypercarbia Presentation: 01/09 03:32 Chief complaint: Patient states: This RN was called to the lobby to retrieve the kd3 patient from the vehicle. Pt is in respiratory distress. Pt unable to speak in full complete sentences. Pt retrieved with ER stretcher, taken to ER room 3, respiratory paged for BiPAP. IV access placed to the right forearm. EKG obtained at the bedside. ER provider remains at the bedside. Coronavirus screen: unknown. Ebola Screen: No symptoms or risks identified at this time. Initial Sepsis Screen: Does the patient meet any 2 criteria? No. Patient's initial sepsis screen is negative. Does the patient have a suspected source of infection? No. Patient's initial sepsis screen is negative. Risk Assessment: Do you want to hurt yourself or someone else? Patient reports no desire to harm self or others. Onset of symptoms was January 10, 2024. 03:32 Method Of Arrival: Stretcher kd3 03:32 Acuity: CRISTIANA 2 kd3 Triage Assessment: 03:35 General: Appears distressed, uncomfortable, Behavior is anxious. Pain: Denies pain. kd3 Historical: - Home Meds: 03:35 Tessalon Perles 100 mg Oral cap [Active]; Nexium Oral [Active]; allopurinol 100 mg Oral kd3 tab [Active]; - PMHx: 03:35 GERD; Gout; kd3 - Immunization history:: Adult Immunizations up to date. - Infectious Disease History:: Denies. - Social history:: Smoking status: unknown. - Family history:: not pertinent. Screenin:50 [facility] ED Fall Risk Assessment (Adult) History of falling in the last 3 months, kd3 including since admission No falls in past 3 months (0 pts) Confusion or Disorientation No (0 pts) Intoxicated or Sedated No (0 pts) Impaired Gait No (0 pts) Mobility Assist Device Used No (0 pt) Altered Elimination No (0 pt) Score/Fall Risk Level 0 - 2 = Low Risk Oriented to surroundings. Abuse screen: Denies threats or abuse. Denies injuries from another. Nutritional screening: No deficits noted. Tuberculosis screening: No symptoms or risk factors identified. Assessment: 03:51 General: Pt's condition improving with BiPAP and breathing TX. . kd3 04:00 General: Appears distressed, unkempt, Behavior is anxious, restless. Pain: Complains of mt4 pain in left leg Pain does not radiate. Pain currently is 5 out of 10 on a pain scale. Quality of pain is described as aching, Pain began a couple weeks. Neuro: Level of Consciousness is awake, alert, obeys commands, Oriented to person, place, time, situation, Supervisor Loading are equal bilaterally Moves all extremities. Gait is steady, Speech is normal, Facial symmetry appears normal. Cardiovascular: Capillary refill < 3 seconds Patient's skin is warm and dry. Edema left lower extremity, patient reports history of gout, non-pitting Rhythm is sinus tachycardia. Respiratory: Airway is compromised Trachea Respiratory effort is labored, Respiratory pattern is hyperventilation tachypnea Patient placed on BiPAP: Breath sounds are diminished bilaterally. the patient has severe shortness of breath. GI: Abdomen is round non-distended, Observed umbilical hernia Abd is non tender. : Denies burning with urination. Derm: Skin is intact, Skin is dry, Skin is normal. Musculoskeletal: Capillary refill < 3 seconds, Range of motion: intact in all extremities. 06:39 General: Hospitalist Provider at bedside to discuss plan of care. Pt reports kd3 improvement of symptoms with nursing interventions and medications. VSS. . Neuro: Level of Consciousness is awake, alert, obeys commands, Oriented to person, place, time, situation. 08:05 Reassessment: Patient appears in no apparent distress at this time. Patient and/or ko1 family updated on plan of care and expected duration. Pain level reassessed. Patient is alert, oriented x 3, equal unlabored respirations, skin warm/dry/pink. Patient states feeling better. Vital Signs: 03:32 BP 158 / 120; Pulse 126; Resp 40; Temp 99.4(TE); Pulse Ox 95% on BiPAP; kd3 03:50 BP 175 / 120; Pulse 130; Resp 29; Pulse Ox 99% on BiPAP; kd3 04:00 BP 187 / 137 (/pedi); Pulse 123; Resp 36; Temp 97.8(A); Pulse Ox 91% on R/A; Pain 6/10; mt4 04:30 BP 156 / 87; Pulse 108; Resp 24; Pulse Ox 100% on bipap; mt4 05:22 Weight 79.38 kg; kd3 06:00 BP 123 / 62; Pulse 98; Resp 20; Pulse Ox 98% on CPAP; mt4 06:40 BP 132 / 65; Pulse 85; Resp 21; Pulse Ox 98% on BiPAP; kd3 04:00 Pain Scale: Adult mt4 Vitals: 04:30 Cardiac Rhythm Assessment Sinus tach. mt4 [place] Coma Score: 04:00 Eye Response: spontaneous(4). Motor Response: obeys commands(6). Verbal Response: mt4 oriented(5). Total: 15. ED Course: 03:30 Patient arrived in ED. sp4 03:32 Carley Hung RN is Primary Nurse. kd3 03:32 Fletcher Gunter MD is Attending Physician. sp4 03:35 Triage completed. kd3 03:35 Arm band placed on right wrist. kd3 03:54 XRAY CXR (1 view) In Process Unspecified. EDMS 04:00 Appears agitated. Appears restless. mt4 04:00 Fall risk band placed. Bed in low position. Call light in reach. Side rails up X 1. mt4 Provided Education on: Medication and labs. 04:00 No provider procedures requiring assistance completed. Inserted saline lock: 20 gauge mt4 in right antecubital area, using aseptic technique. 04:54 Client placed on continuous cardiac and pulse oximetry monitoring. NIBP monitoring mt4 applied. author on. Pulse ox on. Noise minimized. Lights dimmed. Warm blanket given. Pillow given. Verbal reassurance given. Head of bed elevated. 04:54 Inserted saline lock: 22 gauge in left hand, using aseptic technique. mt4 04:55 No apparent distress. Resting quietly. mt4 06:09 Mathew Weiss MD is Hospitalizing Provider. sp4 08:05 Patient admitted, IV remains in place. ko1 Administered Medications: 03:39 Drug: Ativan IVP 1 mg IVP once Route: IVP; Site: right antecubital; mt4 04:58 Follow up: Response: No adverse reaction mt4 03:39 Drug: Albuterol Inhalation 2.5 mg Inhalation every 20 minutes x3 Route: Inhalation; kd3 03:39 Drug: Ipratropium Inhalation Aerosol 0.5 mg Inhalation once; Every 20 min for a total kd3 of 3 treatments x3 Route: Inhalation; 04:15 Drug: Albuterol Inhalation 2.5 mg Inhalation every 20 minutes x3 Route: Inhalation; kd3 04:15 Drug: Ipratropium Inhalation Aerosol 0.5 mg Inhalation once; Every 20 min for a total kd3 of 3 treatments x3 Route: Inhalation; 04:26 Drug: Rocephin - Rocephin (cefTRIAXone) IVPB 1 grams IVPB once over 30 mins; (mix in 50 mt4 mL NS) Route: IVPB; Infused Over: 30 mins; Site: left hand; 04:59 Follow up: Response: No adverse reaction; IV Status: Completed infusion; IV Intake: [id number] 06:41 Follow up: Response: No adverse reaction kd3 04:26 Drug: Magnesium Sulfate IVPB 2 grams IVPB once over 2 hrs Route: IVPB; Infused Over: 2 mt4 hrs; Site: right antecubital; 06:41 Follow up: IV Status: Completed infusion kd3 04:27 Drug: NS 0.9% IV 1000 ml IV at 1 bolus Per protocol; 1000 mL bolus Route: IV; Rate: 1 mt4 bolus; Site: right antecubital; 04:27 Drug: Ondansetron IVP 4 mg IVP once; over 2 minutes Route: IVP; Site: left hand; mt4 04:58 Follow up: Response: No adverse reaction mt4 04:57 Drug: MethylPrednisoLONE IVP 125 mg IVP once Route: IVP; Site: right antecubital; mt4 04:58 Follow up: Response: No adverse reaction mt4 05:00 Drug: Albuterol Inhalation 2.5 mg Inhalation every 20 minutes x3 Route: Inhalation; kd3 05:00 Drug: Ipratropium Inhalation Aerosol 0.5 mg Inhalation once; Every 20 min for a total kd3 of 3 treatments x3 Route: Inhalation; 05:06 Drug: morphine IVP or IV 4 mg IVP once over 4 mins Route: IVP; Infused Over: 4 mins; mt4 Site: left hand; 05:59 Follow up: Response: No adverse reaction mt4 06:41 Follow up: Response: No adverse reaction; Pain is decreased kd3 05:58 Drug: Aspirin PO Chewable Tablet 324 mg PO once; 81 mg tablets x 4 Route: PO; mt4 06:41 Follow up: Response: No adverse reaction kd3 06:49 Follow up: Response: No adverse reaction mt4 05:59 Drug: Heparin ([place] Drip) 12 units/kg/hr - ([place] [address] units, D5W IV 500 ml) IV at mt4 calculated rate Per protocol; Max initial rate 1000 units/hr {Co-Signature: dc (Carley Hung RN).} Route: IV; Rate: calculated rate; Site: right antecubital; 06:49 Follow up: Response: No adverse reaction mt4 06:00 Drug: Heparin ([place]-Bolus No thrombolytic) - HEParin IVP 60 units/kg IVP once; Max 5000 mt4 units {Co-Signature: dc (Carley Hung RN).} Route: IVP; Site: right antecubital; 06:41 Follow up: Response: No adverse reaction kd3 Medication: 03:51 VIS not applicable for this client. kd3 Intake: 04:59 IV: 50ml; Total: 50ml. mt4 Outcome: 06:10 Decision to Hospitalize by Provider. sp4 08:05 Admitted to ICU accompanied by nurse, via stretcher, room 3, on monitor, with chart, ko1 08:05 Condition: improved 08:05 Instructed on the need for admit, 08:22 Patient left the ED. ko1 Signatures: Dispatcher [employer] EDMS Carley Hung RN RN kd3 Yesica Paiz RN RN ko1 Fletcher Gunter MD MD sp4 Meghann Covarrubias RN RN mt4 Carley Hung RN kd3 Corrections: (The following items were deleted from the chart) 03:51 03:32 Chief complaint: Patient states: This RN was called to the lobby to retrieve the kd3 patient from the vehicle. Pt is agonal breathing. Pt unable to speak in full complete sentences. Pt retrieved with ER stretcher, taken to ER room 3, respiratory paged for BiPAP. IV access placed to the right forearm. EKG obtained at the bedside. ER provider remains at the bedside. kd3 03:51 03:50 BP 175 / 120; Pulse 130bpm; Resp 19bpm; Pulse Ox 99% BiPAP; kd3 kd3 04:57 04:57 Ipratropium Inhalation Aerosol 0.5 mg Inhalation kd3 kd3 04:58 04:57 Albuterol Inhalation 2.5 mg Inhalation kd3 kd3
--- NOTE | 2024-01-10 06:12 | EDPHYS ---
Physician Documentation [facility] Name: Dilip Delgado Age: 63 yrs Sex: Male : 1960 Arrival Date: 01/10/2024 Time: 03:27 Bed 3 Private MD: ED Physician Fletcher Gunter HPI: 01/09 03:32 This 63 yrs old Male presents to ER via Unassigned with unknown complaint. sp4 03:38 63-year-old male with history of COPD GERD and gout presents with acute respiratory sp4 distress. History limited secondary to moderate to severe respiratory distress on arrival. . Historical: - Home Meds: 03:35 Tessalon Perles 100 mg Oral cap [Active]; Nexium Oral [Active]; allopurinol 100 mg Oral kd3 tab [Active]; - PMHx: 03:35 GERD; Gout; kd3 - Immunization history:: Adult Immunizations up to date. - Infectious Disease History:: Denies. - Social history:: Smoking status: unknown. - Family history:: not pertinent. ROS: 03:38 Constitutional: Negative for fever, chills, and weight loss, positive for acute sp4 respiratory distress and dyspnea 03:38 All other systems are negative, Exam: 03:38 Constitutional: This is a well developed, well nourished patient who is awake, in sp4 severe respiratory distress, tachypneic tachycardic and dyspneic on arrival, Mild to moderate agitation and anxiety on arrival Head/Face: Normocephalic, atraumatic. Eyes: Pupils equal round and reactive to light, extra-ocular motions intact. Lids and lashes normal. Conjunctiva and sclera are not injected. Cornea within normal limits. Periorbital areas with no swelling, redness, or edema. ENT: Nares patent. No nasal discharge, no septal abnormalities noted. Tympanic membranes are normal and external auditory canals are clear. Oropharynx with no redness, swelling, or masses, exudates, or evidence of obstruction, uvula midline. Mucous membranes moist. Neck: Trachea midline, no thyromegaly or masses palpated, and no cervical lymphadenopathy. Supple, full range of motion without nuchal rigidity, or vertebral point tenderness. Chest/axilla: Normal chest wall appearance and motion. Nontender with no deformity. No lesions are appreciated. Cardiovascular: Regular tachycardia No gallops, murmurs, or rubs. Normal PMI, no JVD. No pulse deficits. Respiratory: Lungs have equal breath , Fuhs bilateral expiratory wheezes, tachypnea, dyspnea, retractions present, but breathing labored Abdomen/GI: Soft, with normal bowel sounds. No distension or tympany. No guarding or rebound. No evidence of tenderness throughout. Back: No spinal tenderness. No costovertebral tenderness. Skin: Warm, dry with normal turgor. Normal color with no rashes, no lesions, and no evidence of cellulitis. MS/ Extremity: Pulses equal, no cyanosis. Neurovascular intact. Full, normal range of motion. Neuro: Awake and alert, GCS 15, oriented to person, place, time, and situation. Cranial nerves II-XII grossly intact. Motor strength 5/5 in all extremities. Sensory grossly intact. Psych: Awake, alert, with orientation to person, place , Moderate agitation and anxiety secondary to respiratory distress 03:38 ECG was reviewed by the Attending Physician. Sinus tachycardia rate 127 , territory movement artifact, rate 127, EKG time 0 336 Vital Signs: 03:32 BP 158 / 120; Pulse 126; Resp 40; Temp 99.4(TE); Pulse Ox 95% on BiPAP; kd3 03:50 BP 175 / 120; Pulse 130; Resp 29; Pulse Ox 99% on BiPAP; kd3 04:00 BP 187 / 137 (/pedi); Pulse 123; Resp 36; Temp 97.8(A); Pulse Ox 91% on R/A; Pain 6/10; mt4 04:30 BP 156 / 87; Pulse 108; Resp 24; Pulse Ox 100% on bipap; mt4 05:22 Weight 79.38 kg; kd3 06:00 BP 123 / 62; Pulse 98; Resp 20; Pulse Ox 98% on CPAP; mt4 06:40 BP 132 / 65; Pulse 85; Resp 21; Pulse Ox 98% on BiPAP; kd3 04:00 Pain Scale: Adult mt4 [place] Coma Score: 04:00 Eye Response: spontaneous(4). Motor Response: obeys commands(6). Verbal Response: mt4 oriented(5). Total: 15. MDM: 03:38 Patient medically screened. sp4 03:42 Differential diagnosis: Anxiety Reaction asthma, Bronchitis CHF exacerbation, Chronic sp4 Obstructive Pulmonary Disease Myocardial Infarction. Data reviewed: vital signs, nurses notes, old medical records, lab test result(s), EKG, radiologic studies, plain films. 06:11 Antibiotic administration: Rocephin IV was given . ED course: Stable for admission. At sp4 this time he is much improved on the BiPAP. Heparin infusion started for elevated troponin.. 01/09 03:31 Order name: BMP; Complete Time: 05:04 sp4 01/09 03:31 Order name: Blood Culture Adult (2) sp4 01/09 03:31 Order name: CBC with Diff; Complete Time: 06:11 sp4 01/09 03:31 Order name: CPK; Complete Time: 05:04 sp4 01/09 03:31 Order name: D-Dimer; Complete Time: 04:38 sp4 01/09 03:31 Order name: Hepatic Function; Complete Time: 05:04 sp4 01/09 03:31 Order name: Lipase; Complete Time: 05:04 sp4 01/09 03:31 Order name: Magnesium; Complete Time: 05:04 sp4 01/09 03:31 Order name: NT PRO-BNP; Complete Time: 05:04 sp4 01/09 03:31 Order name: PT-INR; Complete Time: 04:38 sp4 01/09 03:31 Order name: Ptt, Activated; Complete Time: 04:38 sp4 01/09 03:31 Order name: Troponin HS; Complete Time: 05:04 sp4 01/09 03:31 Order name: ABG sp4 01/09 04:27 Order name: C-Reactive Protein; Complete Time: 05:04 EDMS 01/09 04:27 Order name: T4 Free; Complete Time: 05:04 EDMS 01/09 04:27 Order name: Thyroid Stimulating Hormone; Complete Time: 05:04 EDMS 01/09 04:28 Order name: Manual Differential; Complete Time: 06:11 EDMS 01/09 05:29 Order name: ABG Arterial Blood Gas; Complete Time: 06:11 EDMS 01/09 06:49 Order name: SARS-COV-2 Antigen Rapid EDMS 01/09 06:49 Order name: Basic Metabolic Panel EDMS 01/09 06:49 Order name: Basic Metabolic Panel EDMS 01/09 06:49 Order name: Basic Metabolic Panel EDMS 01/09 06:49 Order name: Basic Metabolic Panel EDMS 01/09 06:49 Order name: CBC with Automated Diff EDMS 01/09 06:49 Order name: CBC with Automated Diff EDMS 01/09 06:49 Order name: CBC with Automated Diff EDMS 01/09 06:49 Order name: CBC with Automated Diff EDMS 01/09 06:50 Order name: Lipid Profile EDMS 01/09 06:50 Order name: Lipid Profile EDMS 01/09 06:50 Order name: Troponin High Sensitivity EDMS 01/09 06:50 Order name: Troponin High Sensitivity EDMS 01/09 06:50 Order name: Troponin High Sensitivity EDMS 01/09 06:50 Order name: Troponin High Sensitivity EDMS 01/09 06:50 Order name: Troponin High Sensitivity EDMS 01/09 06:50 Order name: Blood Culture EDMS 01/09 03:31 Order name: BIPAP sp4 01/09 03:31 Order name: XRAY CXR (1 view) sp4 01/09 06:50 Order name: Extremity Venous Uni Ltd EDMS 01/09 06:59 Order name: Echo with Doppler EDMS 01/09 03:31 Order name: Call RT; Complete Time: 03:45 sp4 01/09 03:31 Order name: Cardiac monitoring; Complete Time: 03:37 sp4 01/09 03:31 Order name: EKG - Nurse/Tech; Complete Time: 03:37 sp4 01/09 03:31 Order name: IV Saline Lock; Complete Time: 03:37 sp4 01/09 03:31 Order name: Labs collected and sent; Complete Time: 03:37 sp4 01/09 03:31 Order name: O2 Per Protocol; Complete Time: 03:37 sp4 01/09 03:31 Order name: O2 Sat Monitoring; Complete Time: 03:37 sp4 EC:38 Rate is 127 beats/min. Rhythm is regular, Sinus tachycardia. QRS [place] is Normal. GA sp4 interval is normal. QRS interval is normal. QT interval is normal. No Q waves. T waves are Normal. No ST changes noted. Clinical impression: No evidence of ischemia. Interpreted by me. Reviewed by me. Administered Medications: 03:39 Drug: Ativan IVP 1 mg IVP once Route: IVP; Site: right antecubital; mt4 04:58 Follow up: Response: No adverse reaction mt4 03:39 Drug: Albuterol Inhalation 2.5 mg Inhalation every 20 minutes x3 Route: Inhalation; kd3 03:39 Drug: Ipratropium Inhalation Aerosol 0.5 mg Inhalation once; Every 20 min for a total kd3 of 3 treatments x3 Route: Inhalation; 04:15 Drug: Albuterol Inhalation 2.5 mg Inhalation every 20 minutes x3 Route: Inhalation; kd3 04:15 Drug: Ipratropium Inhalation Aerosol 0.5 mg Inhalation once; Every 20 min for a total kd3 of 3 treatments x3 Route: Inhalation; 04:26 Drug: Rocephin - Rocephin (cefTRIAXone) IVPB 1 grams IVPB once over 30 mins; (mix in 50 mt4 mL NS) Route: IVPB; Infused Over: 30 mins; Site: left hand; 04:59 Follow up: Response: No adverse reaction; IV Status: Completed infusion; IV Intake: [id number] 06:41 Follow up: Response: No adverse reaction kd3 04:26 Drug: Magnesium Sulfate IVPB 2 grams IVPB once over 2 hrs Route: IVPB; Infused Over: 2 mt4 hrs; Site: right antecubital; 06:41 Follow up: IV Status: Completed infusion kd3 04:27 Drug: NS 0.9% IV 1000 ml IV at 1 bolus Per protocol; 1000 mL bolus Route: IV; Rate: 1 mt4 bolus; Site: right antecubital; 04:27 Drug: Ondansetron IVP 4 mg IVP once; over 2 minutes Route: IVP; Site: left hand; mt4 04:58 Follow up: Response: No adverse reaction mt4 04:57 Drug: MethylPrednisoLONE IVP 125 mg IVP once Route: IVP; Site: right antecubital; mt4 04:58 Follow up: Response: No adverse reaction mt4 05:00 Drug: Albuterol Inhalation 2.5 mg Inhalation every 20 minutes x3 Route: Inhalation; kd3 05:00 Drug: Ipratropium Inhalation Aerosol 0.5 mg Inhalation once; Every 20 min for a total kd3 of 3 treatments x3 Route: Inhalation; 05:06 Drug: morphine IVP or IV 4 mg IVP once over 4 mins Route: IVP; Infused Over: 4 mins; mt4 Site: left hand; 05:59 Follow up: Response: No adverse reaction mt4 06:41 Follow up: Response: No adverse reaction; Pain is decreased kd3 05:58 Drug: Aspirin PO Chewable Tablet 324 mg PO once; 81 mg tablets x 4 Route: PO; mt4 06:41 Follow up: Response: No adverse reaction kd3 06:49 Follow up: Response: No adverse reaction mt4 05:59 Drug: Heparin ([place] Drip) 12 units/kg/[place] - ([place] [address] units, D5W IV 500 ml) IV at mt4 calculated rate Per protocol; Max initial rate 1000 units/hr {Co-Signature: dc (Carley Hung RN).} Route: IV; Rate: calculated rate; Site: right antecubital; 06:49 Follow up: Response: No adverse reaction mt4 06:00 Drug: Heparin (MA-Bolus No thrombolytic) - HEParin IVP 60 units/kg IVP once; Max 5000 mt4 units {Co-Signature: dc (Carley Hung RN).} Route: IVP; Site: right antecubital; 06:41 Follow up: Response: No adverse reaction kd3 Disposition: 06:11 Critical Care: not applicable. sp4 Disposition Summary: 01/10/24 06:10 Hospitalization Ordered Notes: Hospitalization Status: Inpatient Admission sp4 Provider: Mathew Weiss spPatience Condition: Fair sp4 Problem: new sp4 Symptoms: have improved sp4 Bed/Room Type: Standard sp4 Location: Intensive Care Unit(01/10/24 06:50) eb Room Assignment: 2-(01/10/24 06:50) eb Diagnosis - COPD/ Chronic obstructive pulmonary disease with (acute) exacerbation sp4 - NSTEMI, Respiratory failure acute, with hypoxemia and hypercarbia sp4 Forms: - Medication Reconciliation Form sp4 - SBAR form sp4 - Leadership Thank You Letter sp4 Critical care time excluding procedures: 06:11 Critical care time: Bedside Care: 36 minutes, Consultation: 12 minutes, Family sp4 Intervention: 12 minutes. Total time: 60 minutes Signatures: Dispatcher [employer] Valerie Almaraz Kyli, RN RN kd3 Ariadne Summers rv1 Fletcher Gunter MD MD sp4 Meghann Covarrubias RN RN mt4 Carley Hung RN kd3 Corrections: (The following items were deleted from the chart) 03:32 03:32 BASIC METABOLIC PANEL+C.LAB.BRZ ordered. EDMS EDMS 03:32 03:32 BLOOD CULTURE*+BA.LAB.BRZ ordered. EDMS EDMS 03:32 03:32 CBC+H.LAB.BRZ ordered. EDMS EDMS 03:32 03:32 CREATINE PHOSPHOKINASE+C.LAB.BRZ ordered. EDMS EDMS 03:32 03:32 D-DIMER+COAG.LAB.BRZ ordered. EDMS EDMS 03:32 03:32 HEPATIC FUNCTION+C.LAB.BRZ ordered. EDMS EDMS 03:32 03:32 LIPASE+C.LAB.BRZ ordered. EDMS EDMS 03:32 03:32 MAGNESIUM+C.LAB.BRZ ordered. EDMS EDMS 03:32 03:32 PROBNP+C.LAB.BRZ ordered. EDMS EDMS 03:32 03:32 PROTIME (+INR)+COAG.LAB.BRZ ordered. EDMS EDMS 03:32 03:32 PTT, ACTIVATED+COAG.LAB.BRZ ordered. EDMS EDMS 03:32 03:32 Troponin High Sensitivity+C.LAB.BRZ ordered. EDMS EDMS 04:27 03:37 C-REACTIVE PROTEIN+C.LAB.BRZ ordered. EDMS EDMS 04:27 03:37 THYROID STIMULAT HORMONE+C.LAB.BRZ ordered. EDMS EDMS 04:27 03:37 T4 FREE+C.LAB.BRZ ordered. EDMS EDMS 06:41 03:31 Castaneda ordered. sp4 kd3 06:50 06:10 Telemetry/MedSurg (observation) sp4 eb 06:50 06:10 sp4 eb
[2024-01-10] MEDS ORDERED: SODIUM CHLORIDE 0.9% 10ML INJ IV PRN (06:35)
[2024-01-10] MEDS ORDERED: MORPHINE 4 MG/ML SYR IV PRN (06:35)
--- NOTE | 2024-01-10 06:56 | P.HP ---
Certification for Inpatient Patient admitted to: Inpatient With expected LOS: >2 Midnights <Jody Navarro - Last Filed: 01/10/24 06:48> Patient History Date of Service: 01/10/24 Reason for admission: Severe sepsis respiratory failure with hypercapnia and acidosis, non-STEMI History of Present Illness: Mr. Delgado is a 63-year-old gentleman with past medical history of COPD, hypertension, hyperlipidemia, and gout. He states for the last 2 to 3 weeks he has been suffering with gout and taking larger than recommended quantities of Motrin, Celebrex, and has been on steroids consistently. A few days ago he was exposed to someone with a upper respiratory infection. He began to have increasing shortness of breath, decreased activity secondary to leg pain, orthopnea, and severe cough. He presented to the emergency department this morning with severe respiratory failure with hypercapnia and acidosis with a wide-complex tachycardia. He was started on a heparin drip, given aspirin, placed on BiPAP with nebs, magnesium 2 g IV, 1 L normal saline, 1gm of Rocephin and stabilized for admission. He will be admitted to the ICU for further evaluation and treatment. Labs: WBC 28.8 with 91.1% neutrophils with 379 platelet, H/H 14.7/45.4 INR 1.07, D-dimer 0.402 Chemistries pretty unremarkable however troponin 60.5, C-reactive 105, BNP 2088 ABG: pH 7.25, pCO2 61.1, pO2 357, bicarb 25.7, carboxyhemoglobin 3.0, meth hemoglobin 1.7 Imaging: None available in [facility] at this time EKG: ED MD noted wide complex tachycardia on arrival, status post oxygenation patient now in sinus tach with PACs Home medications list reviewed: Yes - Past Medical/Surgical History Has patient received pneumonia vaccine in the past: No Diabetic: No -: GERD -: Gout -: HTN -: COPD -: Hernia -: Right leg ankle repair-Achilles -: Tonsilectomy Psychosocial/ Personal History: Patient lives at home. but chronic ally ill. No home O2. Severe gout, no walker/wheelchair - Family History Father -: Heart disease Mother -: Cancer Notes: Thyroid and colon CA - Social History Smoking Status: Current every day smoker Alcohol use: Yes CD- Drugs: No Caffeine use: Yes Place of Residence: Home <Jody Navarro - Last Filed: 01/10/24 06:48> Date of Service: 01/10/24 <Bruno Soria Mell - Last Filed: 01/10/24 12:22> Allergies No Known Allergies Allergy (Verified 09/22/17 16:19) Home Medications: Allopurinol 300 mg PO DAILY WITH BREAKFAST 09/22/17 Colchicine [Colcrys *] 0.6 mg PO DAILY 09/22/17 Aspirin Chewable [Aspirin Chewable*] 81 mg PO DAILY #30 tab.chew 09/25/17 Fluticasone/Umeclidin/Vilanter [Trelegy Ellipta 100-62.5-25] 1 puff IH DAILY 01/10/24 Hydrocodone Bit/Acetaminophen [Hydrocodon-Acetaminoph 7.5-325] 1 tab PO Q1H 01/10/24 Ibuprofen [Motrin] 100 mg PO Q3H 01/10/24 predniSONE [Prednisone*] 10 mg PO QID 01/10/24 Review of Systems 10-point ROS is otherwise unremarkable General: Malaise Respiratory: Cough, Shortness of Breath, SOB with Excertion, As per HPI Cardiovascular: Orthopnea Musculoskeletal: Leg Pain Integumentary: Unremarkable <Jody Navarro - Last Filed: 01/10/24 06:48> Physical Examination - Vital Signs Pulse: 120 Pulse Ox (%): 100 - Physical Exam General: Alert, Oriented x3, Cooperative, Mild distress, Obese HEENT: Atraumatic, Normocephalic Neck: Supple Respiratory: Diminished Cardiovascular: Normal pulses, Irregular heart rate/rhythm (Sinus tach with PACs/on arrival to ED patient with a wide-complex tachycardia) Capillary refill: <2 Seconds Gastrointestinal: Soft and benign, Distended Musculoskeletal: No clubbing, Other (Left lower extremity tender mild increase in lower extremity size in comparison to right) Integumentary: Other (Pallor with flushing) Neurological: Normal speech, Normal tone, Normal affect Lymphatics: No axilla or inguinal lymphadenopathy External genitalia: Deferred Rectal: Deferred - Studies Laboratory Data (last 24 hrs) 01/10/24 01/10/24 01/10/24 03:37 03:37 03:37 WBC 28.80 H Hgb 14.7 Hct 45.4 Plt Count 379 PT 12.0 INR 1.07 APTT 27.7 Sodium 139 Potassium 4.2 BUN 22 H Creatinine 1.10 Glucose 188 H Magnesium 1.8 Total Bilirubin 0.4 AST 14 L ALT 20 Alkaline Phosphatase 69 Lipase 17 <Jody Navarro Eladio - Last Filed: 01/10/24 06:48> - Studies Laboratory Data (last 24 hrs) 01/10/24 01/10/24 01/10/24 03:37 03:37 03:37 WBC 28.80 H Hgb 14.7 Hct 45.4 Plt Count 379 PT 12.0 INR 1.07 APTT 27.7 Sodium 139 Potassium 4.2 BUN 22 H Creatinine 1.10 Glucose 188 H Magnesium 1.8 Total Bilirubin 0.4 AST 14 L ALT 20 Alkaline Phosphatase 69 Lipase 17 <Bruno Soria - Last Filed: 01/10/24 12:22> Assessment and Plan - Plan Severe sepsis with hypercapnic respiratory failure with acidosis COPD exacerbation Admit to ICU BiPAP Nebs Limit IVF secondary to elevated BNP Blood culture COVID swab Merrem 1 g IV piggyback twice daily Vancomycin 1.5 g IV piggyback twice daily Monitor culture/sensitivity Solu-Medrol 60 mg every 6h NSTEMI with tachycardia Wide-complex tachycardia on arrival to ED, now sinus tachycardia with PACs Elevated BNP Heparin drip Lasix 20 mg IV twice daily for now Echo Monitor and trend troponin Cardiology consult Aspirin 81 mg p.o. daily Patient on BiPAP Telemetry Hypertension Metoprolol as needed systolic blood pressure greater than 100 Hold lisinopril until next creatinine secondary to chronic NSAID use for gout, lasix. Teds Hyperlipidemia Atorvastatin Gout Morphine Try to limit NSAIDs Reflux Patient with chronic NSAID use Protonix 40 IV twice daily VTE/GI prophylaxis Plan to discharge in: Greater than 2 days - Advance Directives Does patient have a Living Will: No Does patient have a Durable POA for Healthcare: No - Code Status/Comfort Care Code Status Assessed: Yes (Full) Critical Care: Yes <Jody Navarro Eladio - Last Filed: 01/10/24 06:48> - Plan Pt seen and examined. I agree with the note by the SURVEY RESEARCH MANAGER. Pt is a 63yo male with past medical history of of COPD, hypertension, hyperlipidemia, and gout who presents with SOB, cough, orthopnea and leg pain. Of note, pt took a lot of NSAIDs over the past 2 - 3 weeks due to leg pain. Lab studies show wbc 28.8, k 4.2, N a139, Cr 1.1, and Hgb 14.7. ABG shows pH 7.25, pCo2 61.1 and pO2 355. On admission, pt presented with severe respiratory failure with hypercapnia and acidosis with a wide-complex tachycardia. At [facility], pt is in n[facility]. A/P: Acute resp failure with hypoxia: Likely due to COPD. Will check COVID. Continue solumedrol, iv vanc, merrem, oxygen, and BIPAP. Consult Pulm. NSTEMI / Wide complex tachycardia: Will continue heparin drip, metoprolol and consult cardiology. Htn: Continue metoprolol HLD: statin DVT ppx: SCD Code: full <Bruno Soria - Last Filed: 01/10/24 12:22>
[2024-01-10] MEDS: ARFORMOTEROL TARTRATE 15 MCG/2 ML VIAL.NEB NEB SCH (08:28)
[2024-01-10] MEDS: HEPARIN/D5W 25,000 UNIT/500 ML BAG IV SCH (08:29)
[2024-01-10 08:40] LABS: Troponin High Sensitivity 351.4 pg/mL (<58.9)
[2024-01-10 08:44] LABS: SARS-CoV-2 Antigen CONTROL BLUE LINE VIS/BG OK; SARS-CoV-2 Antigen Rapid Res Negative (Negative)
[2024-01-10] MEDS: VANCOMYCIN 1.5 GM in NA CHLORIDE 0.9% 500 ML IVPB SCH (09:00)
[2024-01-10] MEDS: METOPROLOL TAR 25 MG TAB PO SCH (09:20)
[2024-01-10] MEDS: ASPIRIN EC 81 MG TAB PO SCH (09:20)
[2024-01-10] MEDS: VANCOMYCIN 2 GM in NA CHLORIDE 0.9% 500 ML IVPB ONE (09:20)
[2024-01-10] MEDS: FUROSEMIDE 20 MG/ 2ML VIAL IV SCH (09:20)
[2024-01-10] MEDS: PANTOPRAZOLE 40 MG INJ IVP SCH (09:20)
--- NOTE | 2024-01-10 09:20 | RAD REPORT ---
EXAM DESCRIPTION: USExtremity Venous Uni Ltd01/10/2024 7:30 am CLINICAL HISTORY: left leg pain COMPARISON: 2018 FINDINGS: Left common femoral, superficial femoral, greater saphenous, popliteal and posterior tibi al veins are compressible and demonstrate augmentation. Doppler demonstrates good flow. Grayscale, color and spectral analysis performed on all vessels IMPRESSION: No evidence of deep venous thrombosis involving the left lower extremity.
[2024-01-10] MEDS: Meropenem 1,000 MG in NA CHLORIDE 0.9% 100 ML IV SCH (09:21)
--- NOTE | 2024-01-10 09:35 | RAD REPORT ---
EXAM DESCRIPTION: US - Lower Extremity Artery Uni Ltd - 01/10/2024 7:36 am CLINICAL HISTORY: Leg pain COMPARISON: None FINDINGS: The left common femoral artery demonstrates a triphasic waveforms. Plaque is present within proximal left superficial femoral artery resulting in marked narrowing. Plaq ue within most of the mid and distal left superficial femoral artery results in an occlusion. Left popliteal, posterior tibial and dorsalis pedis arterial waveforms diminished in amplitude and mo nophasic Grayscale, color and spectral analysis performed on all vessels IMPRESSION: Marked narrowing of most of proximal left superficial femoral artery Occlusion of most of mid and distal left superficial femoral artery
[2024-01-10 09:47] VITALS: BMI 23.8
[2024-01-10] MEDS: NICOTINE 21 MG/PAT TD SCH (11:41)
[2024-01-10] MEDS: METHYLPREDNISOLONE 125 MG INJ IV SCH (11:41)
[2024-01-10 11:48] VITALS: TEMP 97.7
--- NOTE | 2024-01-10 13:16 | P.CNS ---
Date of Consult: 01/10/24 Chief Complaint: Severe sepsis respiratory failure with hypercapnia and acidosis, non-STEMI History of Present Illness: Patient with PMH of Gout, presented with PNA, possible sepsis, he has been having hard time controlling his gout flare then he had sick contact and has been complaining of worsening SOB, cough, chest pressure in mid chest, no radiation, aggravated by the coughing episodes, also felt palpitations, no syncope. Allergies No Known Allergies Allergy (Verified 09/22/17 16:19) Home medications list reviewed: Yes Home Medications: Allopurinol 300 mg PO DAILY WITH BREAKFAST 09/22/17 Colchicine [Colcrys *] 0.6 mg PO DAILY 09/22/17 Aspirin Chewable [Aspirin Chewable*] 81 mg PO DAILY #30 tab.chew 09/25/17 Fluticasone/Umeclidin/Vilanter [Trelegy Ellipta 100-62.5-25] 1 puff IH DAILY 0 01/10/24 Hydrocodone Bit/Acetaminophen [Hydrocodon-Acetaminoph 7.5-325] 1 tab PO Q1H 01/10/24 Ibuprofen [Motrin] 100 mg PO Q3H 01/10/24 predniSONE [Prednisone*] 10 mg PO QID 01/10/24 - Past Medical/Surgical History Diabetic: No -: GERD -: Gout -: HTN -: COPD -: Hernia -: Right leg ankle repair-Achilles -: Tonsilectomy Psychosocial/ Personal History: Patient lives at home. but chronically ill. No home O2. Severe gout, no walker/wheelchair - Family History Father Medical History: Heart disease Mother Medical History: Cancer Notes: Thyroid and colon CA - Social History Smoking Status: Unknown if ever smoked Alcohol use: No CD- Drugs: No Caffeine use: No Place of Residence: Home Review of Systems 10-point ROS is otherwise unremarkable Physical Examination Temp Pulse Resp BP Pulse Ox 97.7 F 74 20 123/65 98 01/10/24 11:00 01/10/24 12:00 01/10/24 12:00 01/10/24 12:00 01/10/24 12:00 General: Alert, In no apparent distress HEENT: Atraumatic, PERRLA, Mucous membr. moist/pink, EOMI, Sclerae nonicteric Neck: Supple, 2+ carotid pulse no bruit, No LAD, Without JVD or thyroid abnormality Respiratory: Diminished, Dull, Crackles/rales, Rhonchi/gurgles Cardiovascular: Regular rate/rhythm, Normal S1 S2 Gastrointestinal: Normal bowel sounds, No tenderness Musculoskeletal: No tenderness Integumentary: No rashes Neurological: Normal gait, Normal speech, Normal tone, Normal affect Lymphatics: No axilla or inguinal lymphadenopathy Laboratory Data (last 24 hrs) 01/10/24 01/10/24 01/10/24 03:37 03:37 03:37 WBC 28.80 H Hgb 14.7 Hct 45.4 Plt Count 379 PT 12.0 INR 1.07 APTT 27.7 Sodium 139 Potassium 4.2 BUN 22 H Creatinine 1.10 Glucose 188 H Magnesium 1.8 Total Bilirubin 0.4 AST 14 L ALT 20 Alkaline Phosphatase 69 Lipase 17 - Problems (1) NSTEMI (non-ST elevated myocardial infarction) Current Visit: Yes Status: Acute Plan: Patient is having occasional chest pain although it is confusing as it associated with cough and PNA. - Continue to trend cardiac enzymes - Get Echo - Continue Heparin drip - ASA 81 mg daily - Lipitor 40 mg daily - possible coronary angiogram Friday once patient respiratory status is better. (2) Atrial fibrillation Current Visit: Yes Status: Acute Plan: New onset as per patient he was not told that he has AF - Metoprolol 25 mg po BID - Continue Heparin drip - will need NOAC on discharge. (3) Congestive heart failure Onset Date: 09/23/17 Current Visit: No Status: Suspected Plan: BNP is elevated, - Get Echo - Lasix 40 mg IV BID - Monitor input and output - Monitor and correct electrolytes. Qualifiers: Heart failure type: systolic Heart failure chronicity: acute on chronic Qualified Code(s): I50.23 - Acute on chronic systolic (congestive) heart failure
[2024-01-10 13:50] VITALS: O2SAT 98
--- NOTE | 2024-01-10 13:57 | EKG ---
Test Date: 2024-01-10 Test Time: 03:32:51 Nutritionists: AF MEASUREMENT RESULTS: Intervals: Rate: 138 [place]: QRSD: 138 QT: 310 QTc: 469 [place]: P: IL: QRS: -90 T: 83 INTERPRETIVE STATEMENTS: Atrial fibrillation with RVR Left axis deviation Right bundle branch block Inferior infarct, age undetermined Anterolateral infarct, age undetermined Abnormal ECG Compared to ECG 05/29/2019 08:57:35 Left-axis deviation now present Right bundle-branch block now present Myocardial infarct finding now present Sinus tachycardia no longer present Fusion complex(es) no longer present Right-axis deviation no longer present ST (T wave) deviation no longer present Electronically Signed On 01-10-24 13:57:25 CDT by Arnold Gonzales
[2024-01-10] MEDS ORDERED: BENZONATATE 100 MG CAP PO PRN (15:38)
[2024-01-10] MEDS: BENZONATATE 100 MG CAP PO PRN (16:04)
[2024-01-10 18:27] VITALS: BP 131/99
[2024-01-10] MEDS ORDERED: ATORVASTATIN 40 MG TAB PO SCH (21:00)
[2024-01-11] MEDS ORDERED: VANCOMYCIN 1.5 GM in NA CHLORIDE 0.9% 500 ML IVPB SCH (03:00)
--- NOTE | 2024-01-12 11:02 | RAD REPORT ---
EXAM DESCRIPTION: RAD - Chest Single View - 01/10/2024 3:52 am CLINICAL HISTORY: Chest pain. COMPARISON: None. TECHNIQUE: XR CHEST 1 VIEW 01/10/2024 3:31 AM CDT FINDINGS: Cardiac silhouette is normal in size. Lungs are clear without consolidation, atelectasis, mass or edema. There is no pleural effusion. There is no pneumothorax. There are no acute osseous fin dings. IMPRESSION: Clear lungs. Electronically signed by: Roberto Ceballos MD 01/10/2024 04:31 AM CDT RP Due to temporary technical issues with the PACS/Fluency reporting system, reports are being signed by the in house radiologist without review as a courtesy to ensure prompt reporting. The interpreting r adiologist is fully responsible for the content of the report.
--- NOTE | 2024-01-13 12:47 | EKG ---
Test Date: 2024-01-10 Test Time: 03:36:01 Associate Editor: AF MEASUREMENT RESULTS: Intervals: Rate: 127 [place]: 160 QRSD: 78 QT: 284 QTc: 412 [place]: P: 80 NH: 160 QRS: 82 T: 87 INTERPRETIVE STATEMENTS: Atrial fibrillation with RVR Anteroseptal infarct, age undetermined Abnormal ECG Compared to ECG 01/10/2024 03:32:51 Left-axis deviation no longer present Right bundle-branch block no longer present Myocardial infarct finding still present Electronically Signed On 01-13-24 12:42:06 CDT by Arnold Gonzales
== END 2024-01-10 20:05 | disposition short-term general hospital (02) | DRG 871 ==
LOC: ER 03:27 → 3RD-ICU 06:35
PROVIDERS: ADMIT Hospitalist; ATTEND Hospitalist
PROC: 4A033R1 Measurement of Arterial Saturation, Peripheral, Percutaneous Approach (ICD-10-PCS; principal; 2024-01-10)
PROC: 5A09357 Assistance with Respiratory Ventilation, Less than 24 Consecutive Hours, Continuous Positive Airway Pressure (ICD-10-PCS; 2024-01-10)
DX: A41.9 Sepsis, unspecified organism (principal); I21.4 Non-ST elevation (NSTEMI) myocardial infarction; J96.01 Acute respiratory failure with hypoxia; J96.02 Acute respiratory failure with hypercapnia; J18.9 Pneumonia, unspecified organism; I50.23 Acute on chronic systolic (congestive) heart failure; J44.1 Chronic obstructive pulmonary disease with (acute) exacerbation; E87.20 Acidosis, unspecified; J44.0 Chronic obstructive pulmonary disease with (acute) lower respiratory infection; R65.20 Severe sepsis without septic shock; E78.5 Hyperlipidemia, unspecified; I48.91 Unspecified atrial fibrillation; E66.9 Obesity, unspecified; M10.9 Gout, unspecified; K21.9 Gastro-esophageal reflux disease without esophagitis; F17.200 Nicotine dependence, unspecified, uncomplicated; Z79.82 Long term (current) use of aspirin; Z11.52 Encounter for screening for COVID-19; Z68.23 Body mass index [BMI] 23.0-23.9, adult; Z79.52 Long term (current) use of systemic steroids; Z79.899 Other long term (current) drug therapy
CPT/HCPCS: 36415; 36600; 71045; 80048; 80061; 80076; 82550; 82805; 83690; 83735; 83880; 84439; 84443; 84484; 84550; 85025; 85379; 85610; 85730; 86140; 87040; 87811; 93005; 93926; 93971; 94640; 94660; 99285; J0696; J1644; J1940; J2185; J2405; J2470; J2919; J3475; J7030; J7040; J7605; J7613; J7644